=== PATIENT | male | born 1985 | race Two or more races ===

== ENCOUNTER 2021-04-21 12:36 | Outpatient (REF) | payer BC, SELFPAY ==
[2021-04-21 12:54] LABS: Binax Internal Control QC Valid; Binax Now Covid-19 Ag Negative (Negative)
== END 2021-04-21 12:37 | disposition home or self-care (01) ==
LOC: HO.LAB 12:36
PROVIDERS: Visit Provider Internal Medicine
DX: Z20.822 Contact with and (suspected) exposure to COVID-19 (principal)
CPT/HCPCS: C9803

== ENCOUNTER 2021-04-27 09:13 | Emergency (ER) | payer BC, SELFPAY ==
--- NOTE | ~2021-04-27 | CT_ITS ---
EXAMINATION: CT ABDOMEN AND PELVIS WITH CONTRAST CLINICAL INFORMATION: Upper abdominal pain. Question pancreatitis. COMPARISON: Abdominal ultrasound from earlier the same day TECHNIQUE: Multidetector volumetric images were obtained from the superior aspect of the liver through the pubic symphysis following administration 85 mL of Omnipaque 350 intravenous contrast. Sagittal and coronal reformatted images were obtained on the technologist's workstation. Oral contrast: Yes This CT examination was performed using dose optimization techniques as appropriate, variously including the following: *Automated exposure control *Adjustment of mA and/or kV according to patient size (this includes techniques or standardized protocols for targeted exams where dose is matched to indication/reason for exam; i.e. extremities or head) *Use of iterative reconstruction technique DLP: 315 mGy-cm FINDINGS: LUNG BASES: The visualized lung bases are unremarkable. LIVER, GALLBLADDER, AND BILIARY TREE: The liver is normal in size, shape, and attenuation. No focal hepatic lesion or biliary ductal dilatation is present. The gallbladder is upper normal in size. No gallstones are appreciated by CT scan. The gallbladder wall is normal. There is no pericholecystic fluid.. PANCREAS: There is mild dilatation of the main pancreatic duct in the head of the pancreas measuring up to 4 to 5 mm. The pancreas is otherwise normal appearing. There is little fat surrounding the pancreas and bowel evaluation of the peripancreatic fat is difficult. No fluid around the pancreas is seen. SPLEEN: Unremarkable. ADRENAL GLANDS: Unremarkable. KIDNEYS AND URETERS: There is a small 2 mm stone in the lower pole of the right kidney. The kidneys are otherwise unremarkable. BLADDER: Unremarkable. GASTROINTESTINAL TRACT: The small and large bowel are unremarkable. The appendix is not seen. There are no inflammatory changes in the right lower quadrant. The stomach is normal. ABDOMINAL WALL: No significant hernia is appreciated. LYMPH NODES: Normal. VASCULAR: Unremarkable. PELVIC VISCERA: Unremarkable. OSSEOUS STRUCTURES: Unremarkable. CT/CT abdomen pelvis w con IMPRESSION: Mild dilatation of the main pancreatic duct in the head of the pancreas. The pancreas is otherwise unremarkable. Upper normal-size gallbladder. Small nonobstructing right renal stone. Fleischner guidelines were followed.
--- NOTE | ~2021-04-27 | US_ITS ---
EXAMINATION: US ABDOMEN COMPLETE CLINICAL INFORMATION: Upper abdominal pain, nausea and vomiting and diarrhea for one week. COMPARISON: None TECHNIQUE: Real-time imaging of the abdominal viscera. FINDINGS: PANCREAS: The head of the pancreas appears slightly hypoechoic. A focal lesion is not appreciated. The main pancreatic duct does not appear dilated. ABDOMINAL AORTA: The proximal and mid segments are normal in caliber. The distal abdominal aorta is not well visualized due to bowel gas. INFERIOR VENA CAVA: Visualized portions are normal. LIVER: Normal. The liver is normal in size. The liver contour is normal. Parenchymal echogenicity is normal. No focal hepatic lesion. There is no intrahepatic biliary duct dilatation seen. GALLBLADDER: Slightly enlarged measuring 3 x 3.8 x 10.2 cm in AP transverse and longitudinal dimension. No gallstones are seen. The gallbladder wall is normal-appearing. There is no pericholecystic fluid. COMMON BILE DUCT: Normal in caliber measuring 0.4 cm in diameter. RIGHT KIDNEY: The upper pole of the right kidney is not well visualized. No hydronephrosis. No renal calculi or focal parenchymal lesions. The kidney measures 8.7 cm in maximum dimension. LEFT KIDNEY: Normal. No hydronephrosis. No renal calculi or focal parenchymal lesions. The kidney measures 9.9 cm in maximum dimension. SPLEEN: Normal. The spleen measures 7.6 cm in maximum dimension. FREE FLUID: None. US/US abdomen complete IMPRESSION: Hypoechoic appearance to the head of the pancreas. Correlation with pancreatic enzymes recommended. This could be better evaluated with CT if clinically indicated. Slightly enlarged gallbladder. No gallstone seen.
[2021-04-27 09:16] VITALS: BP 117/58; PULSE 70; RESP 18; TEMP 36.7; O2SAT 99; BMI 22.5
[2021-04-27] MEDS: 0.9 % Sodium Chloride 1,000 ML 999 ML IVCONT (09:55)
[2021-04-27 09:57] LABS: MANUAL DIFF FLAG NO
[2021-04-27 10:01] LABS: Basophils Percent Auto 0.3 % (0-2); Eosinophils Absolute Auto 0.1 X10*3/uL (0.0-0.4); Eosinophils Percent Auto 1.8 % (0-4); Hematocrit 39.7 % (42.0-52.0); Hemoglobin 12.6 g/dl (14.0-18.0); Imm Gran Abs Auto 0.02 X10*3/uL (0.00-0.03); Imm Gran Pct Auto 0.6 % (0.0-0.4); Lymphocytes Percent Auto 28.7 % (20-40); Mean Corpuscular HGB Conc 31.7 g/dl (31.0-36.0); Mean Corpuscular Hemoglobin 30.8 pg (27.0-33.0); Mean Corpuscular Volume 97.1 fL (80.0-98.0); Mean Platelet Volume 10.1 fL (9.4-12.4); Monocytes Absolute Auto 0.2 X10*3/uL (0.1-1.2); Monocytes Percent Auto 6.1 % (2-11); Neutrophils Absolute Auto 2.1 x10*3/uL (2.0-8.3); Neutrophils Percent Auto 62.5 % (45-73); Platelet Count 187 X10*3/uL (160-400); Red Blood Count 4.09 X10*6/uL (4.60-5.80); Red Cell Distribution Width 13.1 % (11.0-16.0); White Blood Count 3.4 X10*3/uL (4.8-10.8)
[2021-04-27 10:16] LABS: Alanine Aminotransferase 19 U/L (0-40); Albumin Level 4.3 g/dL (3.5-5.0); Alkaline Phosphatase 85 U/L (39-117); Anion Gap 9 (12-20); Aspartate Amino Transferase 20 U/L (5-37); Bilirubin Total 0.7 mg/dL (0.0-1.0); Blood Urea Nitrogen 18 mg/dL (9-16); Calcium 9.6 mg/dL (8.4-10.2); Carbon Dioxide 31 mmol/L (22-29); Chloride 107 mmol/L (96-108); Creatinine Clr Calc Pharmacy 123.1; Estimated Glomerular Filt Rate > 60; Glucose Random 105 mg/dL (60-115); Magnesium 2.3 mg/dL (1.6-2.6); Potassium 4.9 mmol/L (3.3-5.1); Sodium 142 mmol/L (135-145); Total Protein 7.3 g/dL (6.5-8.0)
[2021-04-27 10:20] LABS: COVID-19 Test Negative (Negative)
--- NOTE | 2021-04-27 11:10 | ED_ITS ---
HPI - Abdominal Pain General Chief Complaint: General Medical Stated Complaint: Body aches/Vomiting Time Seen by Provider: 04/27/21 09:33 Source: patient Mode of arrival: ambulatory Limitations: language barrier ([place]-speaking) History of Present Illness HPI narrative: 35-year-old male who denies any significant past medical history presenting to the ED with complaints of body aches, chills, subjective fevers, nausea and vomiting with upper abdominal pain and diarrhea for the past week worse today. Reports that he is unable to keep anything down. Reports that he was tested for COVID over 4-5 times over the past week and he continues to test negative. He reports that his significant other and child had similar symptoms approximately 1 week ago although their symptoms have resolved. He denies any measured fevers, dizziness, headaches, neck pain/stiffness, trouble swallowing or breathing, black or bloody emesis, sore throat, nasal congestion, loss of taste or smell, chest pain or shortness of breath, dyspnea on exertion, orthopnea, palpitations, paresthesias, black or bloody stools, constipation, dysuria, hematuria, abnormal penile discharge, rashes, bad food exposure, recent travel or any other symptoms complaints or concerns at this time. MD elicited complaint: abdominal pain Pertinent past history: none Onset (ago): week(s) (1) Pain Consistency: constant Location: epigastric, LUQ and RUQ Severity: moderate Quality: cramping Radiation: none Migration to: no migration Exacerbating factors: nothing Relieving factors: nothing Context: sick contacts Associated symptoms: nausea, vomiting, diarrhea, fever and chills Related Data Previous Rx's Medication Instructions Recorded dicyclomine 20 mg tablet 20 mg PO BID PRN #14 tab 04/27/21 ondansetron 4 mg disintegrating 4 mg PO Q6-8H PRN #14 tab 04/27/21 tablet Allergies Allergy/AdvReac Type Severity Reaction Status Date / Time No Known Allergies Allergy Unverified 12/11/19 19:08 [No Known Allergies*] Review of Systems Review of Systems Constitutional : + subjective Fever, + Chills, No Night Sweats, + Fatigue, + Malaise Cardiovascular : No Chest Pain, No SOB Respiratory : No Cough, No Sputum, No Wheezing, No Dyspnea Gastrointestinal : + Nausea, + Vomiting, + Diarrhea, + abdominal Pain, No Hematochezia, No Melena Genitourinary : No irregular bleeding, No Dysuria, No Urinary Frequency, No Hematuria,No Urinary Incontinence, No Urgency, No Flank Pain Musculoskeletal : No joint pain, No Myalgias, No Joint Swelling Skin : No Skin Lesions, No rash Neuro : No Weakness, No Numbness, No Paresthesias, No Loss of Consciousness, No Dizziness, No Headache Heme/Lymph: No Lymphadenopathy Endocrine : No Temperature Intolerance Yes all other systems are reviewed and are negative Physical Exam 2 Verdana 4l Vital Signs: Verdana 4d Verdana 4d Vital Signs: Verdana 4d Verdana 4Bd Last Vital Signs Verdana 4d Gang Supervisor New 4d Gang Supervisor New 4d Temp 98.1 F 04/27/21 09:16 Gang Supervisor New 4d Pulse 70 04/27/21 09:16 Gang Supervisor New 4d Resp 18 04/27/21 09:16 BP 117/58 L 04/27/21 09:16 Pulse Ox 99 04/27/21 09:16 BMI result Body Mass Index 22.5 vital signs have been reviewed as normal and appeared to be correct. Blood pressure normal. Heart rate normal. Respiration rate normal. Temperature normal. Oxygen saturation normal. Appearance: Alert. Oriented X3. No acute distress. Head: Normal external exam. Normocephalic. Eyes: PERRLA. EOMI. Conjunctiva and sclera normal. Eyelids normal. ENT: Pharynx normal. Uvula midline. Moist mucous membranes. No trismus noted. No drooling noted. No muffled voice noted. Neck: Normal inspection. Neck supple. FROM. No adenopathy. No meningeal signs. CVS: Normal heart rate and rhythm. Heart sound normal. No murmurs noted. Pulses normal throughout. Respiratory: No respiratory distress. Painless inspiration. Breath sounds normal. No wheezes/rales/rhonchi noted. Chest nontender. No accessory muscle usage noted or decreased air movement noted. Abdomen: Soft and mild tenderness palpation to epigastric/left upper quadrant/right upper quadrant. Nondistended. No guarding. No rigidity. Bowel sounds normal in all 4 quadrants. No distention noted. No organomegaly noted. No visible injury noted. No rebound tenderness. Negative Rovsing sign. Negative obturator's sign. Negative psoas sign. Negative Sheets sign. Back: No CVA tenderness. Full range of motion noted. Skin: Skin warm and dry. Normal skin color. Normal skin turgor. No rashes/lesions/lacerations noted. Extremities: Extremities exhibit normal range of motion. Extremities nontender. Neuro: Oriented X 3. No motor deficit. No sensory deficit. Reflexes normal. Normal steady gait. Vascular: + radial pulses/+ 2 distal pedal pulses/+2 dorsalis pedis b/l. Normal cap refill. No cyanosis noted to upper extremity nails and lower extremity toes nails. Course Course Course Narrative: 9:45am - 35-year-old male who denies any significant past medical history presenting to the ED with complaints of body aches, chills, subjective fevers, nausea and vomiting with upper abdominal pain and diarrhea for the past week worse today. Reports that he is unable to keep anything down. Reports that he was tested for COVID over 4-5 times over the past week and he continues to test negative. He reports that his significant other and child had similar symptoms approximately 1 week ago although their symptoms have resolved. Plan: Patient negative for COVID. Will obtain labs, abdominal ultrasound provide a L of IV fluids and re-evaluate. Reevaluation(s) Reevaluation #1: - patient with blood cell count 3000. Mild anemia with an H&H of 12.6/39.7. Anion gap of 9. BUN of 18. Lipase 5. COVID negative. Otherwise all other labs are within normal limits. - abdominal ultrasound revealed hypoechoic appearance of the head of the pancreas correlate with pancreatic enzymes recommended which could be better evaluated with CT scan if clinically indicated with a slightly enlarged gallbladder no gallstones seen therefore at this time a CT scan abdomen and pelvis with IV contrast was ordered. Will re-evaluate. Time: 12:02 Reevaluation #2: - CT scan of abdomen and pelvis revealed mild dilation of the main pancreatic duct in the head of the pancreas otherwise the pancreas is otherwise unremarkable. Upper normal size of gallbladder small nonobstructing right renal stone otherwise no other acute processes were noted. - therefore at this time will DC home with Zofran and symptomatic treatment and referral to GI for further evaluation treatment although the patient's labs including bilirubin and lipase are all within normal limits and lipase is actually 5 therefore no indication for admission at this time or further evaluation treatment at this time through the ED. He can be worked up as an outpatient in GI. Patient understands agrees with this plan. Time: 12:22 MDM - Abdominal Pain Medical Records Attestation: I reviewed the patient's medical records. Lab Data Attestation: I reviewed the patient's lab results. Result diagrams: 04/27/21 09:51 04/27/21 09:51 Labs: Lab Results 04/27/21 04/27/21 04/27/21 Range/Units 09:51 09:51 09:51 WBC 3.4 L (4.8-10.8) X10*3/uL RBC 4.09 L (4.60-5.80) X10*6/uL Hgb 12.6 L (14.0-18.0) g/dl Hct 39.7 L (42.0-52.0) % MCV 97.1 (80.0-98.0) fL MCH 30.8 (27.0-33.0) pg MCHC 31.7 (31.0-36.0) g/dl RDW 13.1 (11.0-16.0) % Plt Count 187 (160-400) X10*3/uL MPV 10.1 (9.4-12.4) fL Immature Gran % (Auto) 0.6 H (0.0-0.4) % Neut % (Auto) 62.5 (45-73) % Lymph % (Auto) 28.7 (20-40) % [place] % (Auto) 6.1 (2-11) % Eos % (Auto) 1.8 (0-4) % Baso % (Auto) 0.3 (0-2) % Lymph # (Auto) 1.0 L (1.2-4.9) X10*3/uL [place] # (Auto) 0.2 (0.1-1.2) X10*3/uL Eos # (Auto) 0.1 (0.0-0.4) X10*3/uL Baso # (Auto) 0.0 (0.0-0.2) X10*3/uL Abs Immat Gran (auto) 0.02 (0.00-0.03) X10*3/uL Absolute Neuts (auto) 2.1 (2.0-8.3) x10*3/uL Absolute Nucleated RBC 0.000 (0.0-0.012) X10*3/uL Nucleated RBC % (auto) 0.0 (0.0-0.2) /100WBC Sodium 142 (135-145) mmol/L Potassium 4.9 (3.3-5.1) mmol/L Chloride 107 (96-108) mmol/L Carbon Dioxide 31 H (22-29) mmol/L Anion Gap 9 L (12-20) BUN 18 H (9-16) mg/dL Creatinine 0.78 (0.5-1.4) mg/dL Estim Creat Clear Calc 123.1 Estimated GFR > 60 Random Glucose 105 (60-115) mg/dL Calcium 9.6 (8.4-10.2) mg/dL Magnesium 2.3 (1.6-2.6) mg/dL Total Bilirubin 0.7 (0.0-1.0) mg/dL AST 20 (5-37) U/L ALT 19 (0-40) U/L Alkaline Phosphatase 85 (39-117) U/L Total Protein 7.3 (6.5-8.0) g/dL Albumin 4.3 (3.5-5.0) g/dL Lipase 5 L (8-78) U/L COVID-19 (ESTRELLITA) Negative (Negative) COVID-19 Clin Com See Note Imaging Data Abdominal ultrasound: Attestation: I personally reviewed and interpreted this imaging study as follows: Radiologist's impression: FINDINGS: PANCREAS: The head of the pancreas appears slightly hypoechoic. A focal lesion is not appreciated. The main pancreatic duct does not appear dilated. ABDOMINAL AORTA: The proximal and mid segments are normal in caliber. The distal abdominal aorta is not well visualized due to bowel gas. INFERIOR VENA CAVA: Visualized portions are normal. LIVER: Normal. The liver is normal in size. The liver contour is normal. Parenchymal echogenicity is normal. No focal hepatic lesion. There is no intrahepatic biliary duct dilatation seen. GALLBLADDER: Slightly enlarged measuring 3 x 3.8 x 10.2 cm in AP transverse and longitudinal dimension. No gallstones are seen. The gallbladder wall is normal-appearing. There is no pericholecystic fluid. COMMON BILE DUCT: Normal in caliber measuring 0.4 cm in diameter. RIGHT KIDNEY: The upper pole of the right kidney is not well visualized. No hydronephrosis. No renal calculi or focal parenchymal lesions. The kidney measures 8.7 cm in maximum dimension. LEFT KIDNEY: Normal. No hydronephrosis. No renal calculi or focal parenchymal lesions. The kidney measures 9.9 cm in maximum dimension. SPLEEN: Normal. The spleen measures 7.6 cm in maximum dimension. FREE FLUID: None. US/US abdomen complete IMPRESSION: Hypoechoic appearance to the head of the pancreas. Correlation with pancreatic enzymes recommended. This could be better evaluated with CT if clinically indicated. Slightly enlarged gallbladder. No gallstone seen. CT scan abdomen pelvis with IV contrast: Attestation: I personally reviewed and interpreted this imaging study as follows: Radiologist's impression: FINDINGS: LUNG BASES: The visualized lung bases are unremarkable.? LIVER, GALLBLADDER, AND BILIARY TREE: The liver is normal in size, shape, and attenuation. No focal hepatic lesion or biliary ductal dilatation is present. The gallbladder is upper normal in size. No gallstones are appreciated by CT scan. The gallbladder wall is normal. There is no pericholecystic fluid..? PANCREAS: There is mild dilatation of the main pancreatic duct in the head of the pancreas measuring up to 4 to 5 mm. The pancreas is otherwise normal appearing. There is little fat surrounding the pancreas and bowel evaluation of the peripancreatic fat is difficult. No fluid around the pancreas is seen. SPLEEN: Unremarkable.? ADRENAL GLANDS: Unremarkable.? KIDNEYS AND URETERS: There is a small 2 mm stone in the lower pole of the right kidney. The kidneys are otherwise unremarkable. BLADDER: Unremarkable.? GASTROINTESTINAL TRACT: The small and large bowel are unremarkable. The appendix is not seen. There are no inflammatory changes in the right lower quadrant. The stomach is normal. ABDOMINAL WALL: No significant hernia is appreciated.? LYMPH NODES: Normal. VASCULAR: Unremarkable. PELVIC VISCERA: Unremarkable.? OSSEOUS STRUCTURES: Unremarkable.? CT/CT abdomen pelvis w con IMPRESSION: Mild dilatation of the main pancreatic duct in the head of the pancreas. The pancreas is otherwise unremarkable. Upper normal-size gallbladder. Small nonobstructing right renal stone. ? Fleischner guidelines were followed. Critical Care Time Critical Care Time Critical Care Time: Yes Total Critical Care Time: 60 Attestation: I personally attest to this time spent taking care of the patient Discharge Plan Discharge Clinical Impression: Nausea & vomiting, Abdominal pain, Dilated pancreatic duct Patient Disposition: Home, Self-Care Instructions: Acute Nausea and Vomiting (ED), Abdominal Pain (ED) Prescriptions: New ondansetron 4 mg tablet,disintegrating 4 mg PO Q6-8H PRN (Reason: nausea and vomiting) Qty: 14 0RF dicyclomine 20 mg tablet 20 mg PO BID PRN (Reason: Abdominal cramping) Qty: 14 0RF Referrals: Keven Moon MD [Physician] - 2 days Stand Alone Forms: Work/School Release Print Language: [place] [facility] Past Medical History Attestation statement: The following information was validated with the patient. Medical History No known health problems Social History Social History Advance Directives: No Advance Directives Information Provided: No
[2021-04-27 11:16] LABS: Lipase 5 U/L (8-78)
[2021-04-27] MEDS: iohexoL 350 MG/ML 100 ML INFUS..BTL 85 ML IV (11:33)
== END 2021-04-27 12:40 | disposition home or self-care (01) ==
PROVIDERS: Physician Assistant Medical; Emergency Provider Emergency Medicine Emergency Medical Services
DX: M79.10 Myalgia, unspecified site (principal); R10.11 Right upper quadrant pain; R10.12 Left upper quadrant pain; R11.2 Nausea with vomiting, unspecified; Z79.899 Other long term (current) drug therapy; Z20.822 Contact with and (suspected) exposure to COVID-19
CPT/HCPCS: 36415; 74177; 76700; 80053; 83690; 83735; 85025; 87635; 96360; 99283; 99291; Q9967

== ENCOUNTER 2021-07-05 16:43 | Emergency (ER) | payer OTHER, SELFPAY ==
[2021-07-05 17:47] VITALS: BP 101/52; PULSE 60; RESP 18; TEMP 36.9; O2SAT 98; BMI 20.2
[2021-07-05 18:13] LABS: MANUAL DIFF FLAG NO
[2021-07-05 18:15] LABS: Basophils Percent Auto 0.4 % (0-2); Eosinophils Percent Auto 0.9 % (0-4); Hematocrit 38.5 % (42.0-52.0); Hemoglobin 12.1 g/dl (14.0-18.0); Imm Gran Abs Auto 0.01 X10*3/uL (0.00-0.03); Imm Gran Pct Auto 0.2 % (0.0-0.4); Lymphocytes Absolute Auto 1.2 X10*3/uL (1.2-4.9); Lymphocytes Percent Auto 26.5 % (20-40); Mean Corpuscular HGB Conc 31.4 g/dl (31.0-36.0); Mean Corpuscular Hemoglobin 31.2 pg (27.0-33.0); Mean Corpuscular Volume 99.2 fL (80.0-98.0); Mean Platelet Volume 10.2 fL (9.4-12.4); Monocytes Absolute Auto 0.3 X10*3/uL (0.1-1.2); Monocytes Percent Auto 6.7 % (2-11); Neutrophils Absolute Auto 2.9 x10*3/uL (2.0-8.3); Neutrophils Percent Auto 65.3 % (45-73); Platelet Count 166 X10*3/uL (160-400); Red Blood Count 3.88 X10*6/uL (4.60-5.80); Red Cell Distribution Width 12.9 % (11.0-16.0); White Blood Count 4.5 X10*3/uL (4.8-10.8)
[2021-07-05 18:16] LABS: Appearance Urine HAZY; Color Urine YELLOW; Glucose Urine UA NEG (NEG); Leukocyte Esterase Urine NEG (NEG); Nitrite Urine NEG (NEG); Specific Gravity - Urine 1.015 (1.005-1.025); Urine Blood NEG (NEG); Urine Ketones NEG (NEG); Urine Protein TRACE MG/DL (NEG-TRACE)
[2021-07-05 18:37] LABS: Alanine Aminotransferase 16 U/L (0-40); Albumin Level 4.1 g/dL (3.5-5.0); Alkaline Phosphatase 87 U/L (39-117); Anion Gap 9 (12-20); Aspartate Amino Transferase 20 U/L (5-37); Bilirubin Total 0.5 mg/dL (0.0-1.0); Blood Urea Nitrogen 14 mg/dL (9-16); Calcium 9.3 mg/dL (8.4-10.2); Carbon Dioxide 32 mmol/L (22-29); Chloride 107 mmol/L (96-108); Creatinine Clr Calc Pharmacy 117.3; Estimated Glomerular Filt Rate > 60; Glucose Random 88 mg/dL (60-115); Potassium 3.9 mmol/L (3.3-5.1); Sodium 144 mmol/L (135-145); Total Protein 6.9 g/dL (6.5-8.0)
== END 2021-07-05 23:40 | disposition left against medical advice (07) ==
PROVIDERS: Emergency Provider Emergency Medicine; PCP Internal Medicine
DX: R11.10 Vomiting, unspecified (principal); R19.7 Diarrhea, unspecified; R10.9 Unspecified abdominal pain; F17.200 Nicotine dependence, unspecified, uncomplicated
CPT/HCPCS: 36415; 80053; 81003; 85025; 99283

== ENCOUNTER 2021-07-06 10:23 | Emergency (ER) | payer OTHER, SELFPAY ==
[2021-07-06 10:27] VITALS: BP 117/83; PULSE 74; RESP 18; TEMP 36; O2SAT 100; BMI 21.5
[2021-07-06 10:39] LABS: Basophils Percent Auto 0.2 % (0-2); Eosinophils Percent Auto 0.7 % (0-4); Hematocrit 40.5 % (42.0-52.0); Hemoglobin 13.1 g/dl (14.0-18.0); Imm Gran Abs Auto 0.01 X10*3/uL (0.00-0.03); Imm Gran Pct Auto 0.2 % (0.0-0.4); Lymphocytes Absolute Auto 0.8 X10*3/uL (1.2-4.9); Lymphocytes Percent Auto 18.3 % (20-40); MANUAL DIFF FLAG NO; Mean Corpuscular HGB Conc 32.3 g/dl (31.0-36.0); Mean Corpuscular Hemoglobin 31.5 pg (27.0-33.0); Mean Corpuscular Volume 97.4 fL (80.0-98.0); Mean Platelet Volume 9.9 fL (9.4-12.4); Monocytes Absolute Auto 0.2 X10*3/uL (0.1-1.2); Monocytes Percent Auto 4.4 % (2-11); Neutrophils Absolute Auto 3.5 x10*3/uL (2.0-8.3); Neutrophils Percent Auto 76.2 % (45-73); Platelet Count 187 X10*3/uL (160-400); Red Blood Count 4.16 X10*6/uL (4.60-5.80); White Blood Count 4.5 X10*3/uL (4.8-10.8)
[2021-07-06 10:54] LABS: Appearance Urine CLEAR; Color Urine YELLOW; Glucose Urine UA NEG (NEG); Leukocyte Esterase Urine NEG (NEG); Nitrite Urine NEG (NEG); PH 8.5 (5.0-8.0); Urine Blood NEG (NEG); Urine Ketones NEG (NEG); Urine Protein NEG (NEG-TRACE)
[2021-07-06 11:17] LABS: Alanine Aminotransferase 20 U/L (0-40); Albumin Level 4.4 g/dL (3.5-5.0); Alkaline Phosphatase 90 U/L (39-117); Anion Gap 11 (12-20); Aspartate Amino Transferase 24 U/L (5-37); Bilirubin Total 0.6 mg/dL (0.0-1.0); Blood Urea Nitrogen 13 mg/dL (9-16); Calcium 9.4 mg/dL (8.4-10.2); Carbon Dioxide 27 mmol/L (22-29); Chloride 108 mmol/L (96-108); Creatinine Clr Calc Pharmacy 118.4; Estimated Glomerular Filt Rate > 60; Glucose Random 109 mg/dL (60-115); Sodium 142 mmol/L (135-145); Total Protein 7.4 g/dL (6.5-8.0)
[2021-07-06 13:41] VITALS: BP 112/71; PULSE 57; RESP 12; TEMP 36.7; O2SAT 100
--- NOTE | 2021-07-06 13:47 | ED.NAVMDI ---
HPI - Nausea/Vomiting/Diarrhea General Chief complaint: Abdominal Pain Stated complaint: N/V/D Time Seen by Provider: 07/06/21 13:22 Source: patient and seismic interpreter Mode of arrival: ambulatory Limitations: no limitations History of Present Illness MD elicited complaint: nausea, vomiting, diarrhea and abdominal pain Onset (ago): day(s) (2) Description of vomiting: food contents Associated nausea: Yes Associated abdominal pain: Yes Location of pain: diffuse Radiation: diffuse Pain consistency: intermittent Severity: mild Quality: cramping Exacerbating factors: eating Relieving factors: none Associated symptoms: fever/chills, loss of appetite, malaise and nausea/vomiting Related Data Previous Rx's Medication Instructions Recorded dicyclomine 20 mg tablet 20 mg PO BID PRN #14 tab 04/27/21 ondansetron 4 mg disintegrating 4 mg PO Q6-8H PRN #14 tab 04/27/21 tablet famotidine 20 mg tablet (Pepcid) 20 mg PO DAILY PRN #30 tab 07/06/21 ondansetron 4 mg disintegrating 4 mg PO Q8H PRN #20 tab 07/06/21 tablet Allergies Allergy/AdvReac Type Severity Reaction Status Date / Time No Known Allergies Allergy Unverified 12/11/19 19:08 [No Known Allergies*] Review of Systems Review of Systems: Constitutional : No Weight loss, No Fever, No Chills ENT/Mouth : No sore throat, No Rhinorrhea Eyes: No Swelling, No Redness Cardiovascular : No Chest Pain, No SOB, NoEdema Respiratory : No Cough, No Sputum, No Wheezing Gastrointestinal : Positive Nausea, Positive Vomiting, positive Diarrhea, positive abdominal Pain, No Hematochezia, No Melena Genitourinary : No Dysuria, No Urinary Frequency, No Hematuria, No Urgency Musculoskeletal : No joint pain, No Myalgias, No Joint Swelling Skin : No Skin Lesions, No rash Neuro : No Weakness, No Numbness, No Dizziness, No Headache Psych : No Anxiety/Panic, No Depression Heme/Lymph: No Bruising, No Lymphadenopathy Endocrine : No Polyuria, No Polydipsia All other systems reviewed and are negative. Gastrointestinal: Gastrointestinal: Reports nausea PMFSH Past Medical History Attestation statement: The following information was validated with the patient. Medical History No known health problems Social History Social History (Updated 07/06/21 @ 13:47 by Flavia Newman DO) Patient Tobacco Use Status: Current everyday Tobacco user Advance Directives: No Physical Exam Vital Signs: Vital Signs: Last Vital Signs Temp 98.0 F 07/06/21 13:41 Pulse 57 07/06/21 13:41 Resp 12 07/06/21 13:41 BP 112/71 07/06/21 13:41 Pulse Ox 100 07/06/21 13:41 BMI result Body Mass Index 21.5 Appearance: Alert. Oriented X3. No acute distress. Eyes: Pupils equal, round and reactive to light. ENT: Pharynx normal. Neck: Normal inspection. Neck supple. CVS: Normal heart rate and rhythm. Pulses normal. Respiratory: No respiratory distress. Breath sounds normal. Abdomen: Soft and non-tender. Skin: Skin warm and dry. Normal skin color. Normal skin turgor. Extremities: No lower extremity edema. No calf ttp Neuro: Oriented X 3. No motor deficit. No sensory deficit. Course Course Course Narrative: tolerating PO feels better MDM - Nausea/Vomiting/Diarrhea MDM Narrative Medical decision making narrative: 35 yo male with hx of dilated pancreatic duct comes in with c/o abdominal pain, hot flashes, n/v/d x 2 days - denies abx use, sick contacts, or food exposures. Overall his abdomen is benign and he is not toxic. Will obtain basic labs, hydrate, IVF, supportive medications - states he has a follow up appointment for his CT scan findings 04/2021 Lab Data Result diagrams: 07/06/21 10:34 07/06/21 10:34 Labs: Lab Results 07/06/21 07/06/21 07/06/21 Range/Units 10:34 10:34 10:43 WBC 4.5 L (4.8-10.8) X10*3/uL RBC 4.16 L (4.60-5.80) X10*6/uL Hgb 13.1 L (14.0-18.0) g/dl Hct 40.5 L (42.0-52.0) % MCV 97.4 (80.0-98.0) fL MCH 31.5 (27.0-33.0) pg MCHC 32.3 (31.0-36.0) g/dl RDW 13.0 (11.0-16.0) % Plt Count 187 (160-400) X10*3/uL MPV 9.9 (9.4-12.4) fL Immature Gran % (Auto) 0.2 (0.0-0.4) % Neut % (Auto) 76.2 H (45-73) % Lymph % (Auto) 18.3 L (20-40) % [place] % (Auto) 4.4 (2-11) % Eos % (Auto) 0.7 (0-4) % Baso % (Auto) 0.2 (0-2) % Lymph # (Auto) 0.8 L (1.2-4.9) X10*3/uL [place] # (Auto) 0.2 (0.1-1.2) X10*3/uL Eos # (Auto) 0.0 (0.0-0.4) X10*3/uL Baso # (Auto) 0.0 (0.0-0.2) X10*3/uL Abs Immat Gran (auto) 0.01 (0.00-0.03) X10*3/uL Absolute Neuts (auto) 3.5 (2.0-8.3) x10*3/uL Absolute Nucleated RBC 0.000 (0.0-0.012) X10*3/uL Nucleated RBC % (auto) 0.0 (0.0-0.2) /100WBC Sodium 142 (135-145) mmol/L Potassium 4.0 (3.3-5.1) mmol/L Chloride 108 (96-108) mmol/L Carbon Dioxide 27 (22-29) mmol/L Anion Gap 11 L (12-20) BUN 13 (9-16) mg/dL Creatinine 0.80 (0.5-1.4) mg/dL Estim Creat Clear Calc 118.4 Estimated GFR > 60 Random Glucose 109 (60-115) mg/dL Calcium 9.4 (8.4-10.2) mg/dL Total Bilirubin 0.6 (0.0-1.0) mg/dL AST 24 (5-37) U/L ALT 20 (0-40) U/L Alkaline Phosphatase 90 (39-117) U/L Total Protein 7.4 (6.5-8.0) g/dL Albumin 4.4 (3.5-5.0) g/dL Lipase 7 L (8-78) U/L Urine Color YELLOW Urine Appearance CLEAR Urine pH 8.5 H (5.0-8.0) Ur Specific [place] 1.020 (1.005-1.025) Urine Protein NEG (NEG-TRACE) MG/DL Urine Glucose (UA) NEG (NEG) MG/DL Urine Ketones NEG (NEG) MG/DL Urine Blood NEG (NEG) Urine Nitrite NEG (NEG) Ur Leukocyte Esterase NEG (NEG) Discharge Plan Discharge Clinical Impression: Vomiting, Abdominal pain, Diarrhea Patient Disposition: Home, Self-Care Instructions: Acute Nausea and Vomiting (ED), Acute Diarrhea (ED), Abdominal Pain (ED) Additional Instructions: return to ED for any worsening symptoms or concerns Prescriptions: New famotidine [Pepcid] 20 mg tablet 20 mg PO DAILY PRN (Reason: abdominal discomfort) Qty: 30 0RF ondansetron 4 mg tablet,disintegrating 4 mg PO Q8H PRN (Reason: nausea and vomiting) Qty: 20 0RF No Action ondansetron 4 mg tablet,disintegrating 4 mg PO Q6-8H PRN (Reason: nausea and vomiting) Qty: 14 0RF dicyclomine 20 mg tablet 20 mg PO BID PRN (Reason: Abdominal cramping) Qty: 14 0RF Stand Alone Forms: Work/School Release Print Language: Portuguese
[2021-07-06] MEDS: 0.9 % Sodium Chloride 1,000 ML 999 ML IV (13:52)
[2021-07-06] MEDS: Famotidine/PF 20 MG/2 ML VIAL IVPUSH (13:53)
[2021-07-06] MEDS: Ketorolac Tromethamine 30 MG/ML VIAL IVPUSH (13:53)
[2021-07-06] MEDS: ondansetron HCL 4 MG/2 ML VIAL IVPUSH (13:53)
[2021-07-06 13:54] LABS: Lipase 7 U/L (8-78)
--- NOTE | 2021-07-06 14:43 | PC.NURSE ---
patient tolerating PO intake at this time, no apparent distress. denies any needs
== END 2021-07-06 15:05 | disposition home or self-care (01) ==
PROVIDERS: Emergency Provider Emergency Medicine; PCP Family Medicine
DX: R10.9 Unspecified abdominal pain (principal); R11.10 Vomiting, unspecified; R19.7 Diarrhea, unspecified; F17.210 Nicotine dependence, cigarettes, uncomplicated; Z71.6 Tobacco abuse counseling; Z79.899 Other long term (current) drug therapy
CPT/HCPCS: 36415; 80053; 81003; 83690; 85025; 96361; 96374; 96375; 99284; J1885; J2405

== ENCOUNTER 2021-11-04 07:44 | Outpatient (REF) | payer OTHER, SELFPAY ==
--- NOTE | ~2021-11-04 | XR_ITS ---
EXAMINATION: XR KNEE AP STANDING CLINICAL INFORMATION: Knee pain COMPARISON: Radiographs left knee 11/04/2021, 11/26/2015 TECHNIQUE: Standing AP view of both knees is performed. FINDINGS: Right: Normal bony mineralization. No joint narrowing or erosive change or chondrocalcinosis or subchondral sclerosis. Left: Visualized hardware distal femur intact. No definite joint narrowing. No erosive change or chondrocalcinosis. XR/XR knee standing BI IMPRESSION: Unremarkable knees.
--- NOTE | ~2021-11-04 | XR_ITS ---
EXAMINATION: XR HIP, LEFT CLINICAL INFORMATION: Hip pain COMPARISON: Radiographs standing AP knees and left knee 11/04/2021, left knee 11/26/2015. TECHNIQUE: AP view pelvis is performed along with AP and frog-lateral projections left hip. FINDINGS: Pelvis shows no fracture or dislocation or destructive process. There is probable bilateral SI joint narrowing. No visible erosive change. Pubis unremarkable. Bony mineralization normal. Right hip are unremarkable. Small incidental bone island right femoral neck. Left hip shows no acute fracture or dislocation. There is old healed fracture mid femoral shaft with intramedullary jay with proximal and distal interlocking screws. Hardware intact. No osteolysis or destructive process. XR/XR hip LT w PEL1V IMPRESSION: -Suspect mild bilateral SI joint narrowing. No visible erosive change. -Old healed fracture left femoral shaft. Hardware intact.
--- NOTE | ~2021-11-04 | XR_ITS ---
EXAMINATION: XR KNEE, LEFT CLINICAL INFORMATION: Pain left knee. COMPARISON: Left knee 11/26/2015. TECHNIQUE: Two views of the left knee. FINDINGS: There is an intramedullary femoral jay extending through the distal femur, stabilized with a solitary screw in the distal femur. No visible acute fracture or dislocation is seen. There is minimal superior spurring. The soft tissues are unremarkable. XR/XR knee LT 2V IMPRESSION: Stable intramedullary femoral jay with a solitary screw through the distal femur stabilizing the jay. No joint effusion is seen except for minimal superior patellar spurring.
== END 2021-11-04 07:45 | disposition home or self-care (01) ==
LOC: HO.HOSX 07:44
PROVIDERS: Visit Provider Physician Assistant
DX: M25.561 Pain in right knee (principal); M25.562 Pain in left knee; M25.552 Pain in left hip; Z96.9 Presence of functional implant, unspecified
CPT/HCPCS: 73502; 73560; 73565; 99202

== ENCOUNTER → 2022-04-03 13:26 | Outpatient (BNVA) | payer OTHER, SELFPAY | PROVIDERS: PCP Family Medicine; Visit Provider Orthopaedic Surgery | DX: T84.84XA Pain due to internal orthopedic prosthetic devices, implants and grafts, initial encounter (principal); M25.562 Pain in left knee; Z96.9 Presence of functional implant, unspecified | CPT/HCPCS: 20610; 99202; J1100 ==

== ENCOUNTER 2022-05-04 10:00 | Outpatient (RCR) | payer OTHER, SELFPAY ==
--- NOTE | 2022-04-21 14:20 | MHC.PT.EP ---
[facility] [place] Office [place] [facility] [place] Office [address] [place] Soares [address] [phone] F: [phone] F: [phone] F: [phone] F: [phone] Physical Therapy Plan of Care Date of Evaluation: Date of Surgery: 2005 Diagnosis: chronic L knee pain (Hx femur fx with femoral retrograde nailing in 2005) Assessment: Patient is a 36 y.o. male who is referred to PT by Dr. Frankie Tam MD, with Dx of chronic L knee pain (Hx femur fx with femoral retrograde nailing in 2005). Patient impairments include pain, weakness, limited ROM, and antalgic gait. Patient current functional limitations are standing, walking, sleeping (gets spasms in leg), using stairs (lives on 4th floor), and sit to stand. Patient will benefit from skilled PT to address aforementioned impairments and functional limitations to meet established goals. Frequency and Duration: The patient will be seen 2x/week for 4 weeks Short Term Goals: 2 weeks Patient demonstrates consistency and independence with HEP to self manage symptoms. Patient presents with increased L ankle DF 5 degrees to improve heel to toe gait pattern [facility] Goals: 4 weeks Patient presents with increased L knee flexion 110 degrees to be able to perform sit to stand on low surface. Patient presents with increased L knee extension 4/5 to be able to perform reciprocal stairs at home. Treatment Plan: Modalities to reduce pain, spasms and effusion. Manual therapy to restore motion and function. Therapeutic exercise to improve strength and flexibility. Neuromuscular re-education for posture and balance. Therapeutic activities to return to functional activities of daily living. Electronically signed by: Samantha Arnold, PT, DPT Please sign and return to therapist. Thank you for your referral.
--- NOTE | 2022-05-19 11:03 | MHC.PT.DC ---
[facility] [place] Office [place] [facility] [place] [facility] [address] Milton Soares [address] [phone] F: [phone] F: [phone] F: [phone] F: [phone] Physical Therapy Discharge Report Diagnosis: chronic L knee pain (Hx femur fx with femoral retrograde nailing in 2005) Date of Surgery: 2005 Date of Evaluation: 04/21/22 Date of Discharge: 05/19/22 Treatments to Date: 3 Cancellations to Date: 1 No Shows to Date: 5 Discharge Status: Visit Non-compliance Discharge Summary: Patient ceased attending PT on his own accord and no showed or canceled more PT visits than he attended. Difficulty determining effectiveness of PT on patient condition due to this. His is discharged from PT at this time. Electronically signed by: Samantha Arnold, PT, DPT Please sign and return to therapist. Thank you for your referral.
== END 2022-05-19 11:04 | disposition home or self-care (01) ==
LOC: HO.PT 10:00
PROVIDERS: PCP Registered Nurse; Visit Provider Orthopaedic Surgery
DX: M25.562 Pain in left knee (principal); Z96.9 Presence of functional implant, unspecified
CPT/HCPCS: 97110; 97140; 97161

== ENCOUNTER → 2022-08-17 12:13 | Outpatient (BNVA) | payer OTHER, SELFPAY | PROVIDERS: PCP Registered Nurse; Visit Provider Orthopaedic Surgery | DX: M25.562 Pain in left knee (principal); Z96.9 Presence of functional implant, unspecified | CPT/HCPCS: 20610; 99212; J1100 ==

== ENCOUNTER 2023-06-27 16:21 | Outpatient (REF) | payer MEDICAID, SELFPAY ==
[2023-06-27 17:56] LABS: Alanine Aminotransferase 14 U/L (0-40); Albumin Level 4.1 g/dL (3.5-5.0); Alkaline Phosphatase 95 U/L (39-117); Aspartate Amino Transferase 16 U/L (5-37); Bilirubin Direct 0.2 mg/dL (0.0-0.5); Bilirubin Total 0.3 mg/dL (0.0-1.0); Total Protein 7.4 g/dL (6.5-8.0)
[2023-06-28 02:38] LABS: CT PCR NOT DETECTED (Not Detect.); NG PCR NOT DETECTED (Not Detect.)
[2023-06-28 07:13] LABS: HBS Num1 > 1000.00 mIU/mL (0-7.99); HBc Num1 0.09 S/CO (0.00-0.79); HBsAGNum1 0.39 S/CO (0.00-0.99); HIV AB/AG Nonreactive (Nonreactive); HIV Num 1 0.07 S/CO (0.00-0.99); Hepatitis B Core Antibody Nonreactive (Nonreactive); Hepatitis B Surface Antigen Negative (Negative); ~HepC Num1 14.27 S/CO (0.00-0.79); ~Hepatitis B Surface Antibody REACTIVE (Nonreactive); ~Hepatitis C Antibody Reactive (Nonreactive)
[2023-06-28 07:16] LABS: Hepatitis A Antibody IgG REACTIVE (Nonreactive); ~Hepatitis A Antibody IgG 10.32 S/CO (0.00-0.99)
[2023-06-28 07:18] LABS: Syphilis Screen Nonreactive (Nonreactive)
[2023-06-29 08:08] LABS: RPR Rapid Plasma Reagin NON-REACTIVE (NON-REACTIVE)
[2023-06-30 06:14] LABS: HIV RNA PCR Qn Copies Not Detected Copies/mL; HIV RNA PCR Qn Log Copies Not Detected Log cps/mL
[2023-07-03 16:03] LABS: HCV Log PCR <1.18 NOT DETECTED Log IU/mL (NOT DETECTED); HepC Viral Load <15 NOT DETECTED IU/mL (NOT DETECTED)
== END 2023-06-27 16:22 | disposition home or self-care (01) ==
LOC: HO.HHCL 16:21
PROVIDERS: Nurse Practitioner Family; Visit Provider Emergency Medicine
DX: Z11.4 Encounter for screening for human immunodeficiency virus [HIV] (principal); F11.20 Opioid dependence, uncomplicated; Z20.2 Contact with and (suspected) exposure to infections with a predominantly sexual mode of transmission
CPT/HCPCS: 0353U; 36415; 80076; 86592; 86704; 86706; 86708; 86780; 86803; 87340; 87389; 87522; 87536; 87900

== ENCOUNTER 2023-11-12 09:50 | Outpatient (REF) | payer MEDICAID, SELFPAY ==
[2023-11-14 23:33] LABS: TS Negative Control Passed; TS Panel A 0; TS Panel B 0; TS Positive Control Passed; TSpotTB Negative (Negative)
== END 2023-11-12 09:51 | disposition home or self-care (01) ==
LOC: HO.HHCL 09:50
PROVIDERS: Visit Provider Emergency Medicine
DX: F11.20 Opioid dependence, uncomplicated (principal)
CPT/HCPCS: 36415; 86481

== ENCOUNTER 2023-12-06 13:09 | Outpatient (REF) | payer MEDICAID, SELFPAY ==
[2023-12-06 16:52] LABS: TSH reflex Free T4 0.68 uIU/mL (0.32-4.0); Vitamin D 25-OH Total 19.7 ng/mL (>30)
[2023-12-06 17:07] LABS: Folate 13.6 ng/mL (> or = 4.0); Vitamin B12 243 pg/mL (200-900)
== END 2023-12-06 13:10 | disposition home or self-care (01) ==
LOC: HO.HHCL 13:09
PROVIDERS: Visit Provider Registered Nurse
DX: L65.9 Nonscarring hair loss, unspecified (principal)
CPT/HCPCS: 36415; 82306; 82607; 82746; 84443

== ENCOUNTER 2024-01-28 09:17 | Outpatient (REF) | payer MEDICAID, SELFPAY ==
[2024-01-28 11:26] LABS: Hematocrit 41.2 % (42.0-52.0); Hemoglobin 13.4 g/dl (14.0-18.0); Mean Corpuscular HGB Conc 32.5 g/dl (31.0-36.0); Mean Corpuscular Volume 98.3 fL (80.0-98.0); Mean Platelet Volume 10.7 fL (9.4-12.4); Platelet Count 178 X10*3/uL (160-400); Red Blood Count 4.19 X10*6/uL (4.60-5.80); Red Cell Distribution Width 14.2 % (11.0-16.0); White Blood Count 4.8 X10*3/uL (4.8-10.8)
[2024-01-28 13:00] LABS: Alanine Aminotransferase 22 U/L (0-40); Albumin Level 4.4 g/dL (3.5-5.0); Alkaline Phosphatase 91 U/L (39-117); Anion Gap 12 (12-20); Aspartate Amino Transferase 28 U/L (5-37); Bilirubin Total 0.4 mg/dL (0.0-1.0); Blood Urea Nitrogen 24 mg/dL (9-16); Calcium 9.2 mg/dL (8.4-10.2); Carbon Dioxide 26 mmol/L (22-29); Chloride 109 mmol/L (96-108); Cholesterol 118 mg/dL (<200); Estimated Glomerular Filt Rate > 60; Glucose Random 95 mg/dL (60-115); HDL Cholesterol 38 mg/dL (>40); LDL Cholesterol Calculated 63 mg/dL (<100); Potassium 3.9 mmol/L (3.3-5.1); Sodium 143 mmol/L (135-145); Total Protein 7.4 g/dL (6.5-8.0); Triglycerides 88 mg/dL (<150)
[2024-01-28 13:24] LABS: Estimated Average Glucose 94 mg/dL; Hemoglobin A1C 138.4477 umol/L; Hemoglobin A1c % 4.9 % (<6.0); Total Hemoglobin (HGBA1C) 4683.4243 umol/L
[2024-01-28 16:30] LABS: Iron 48 mcg/dL (45-160); Percent Iron Saturation 19 % (15-50); Total Iron Binding Capacity 250 mcg/dL (228-428); Unsaturated Iron Binding 202 ug/dL
[2024-01-28 16:36] LABS: Ferritin 42 ng/mL (20-250)
[2024-01-29 15:58] LABS: HCV Log PCR <1.18 NOT DETECTED Log IU/mL (NOT DETECTED); HepC Viral Load <15 NOT DETECTED IU/mL (NOT DETECTED)
== END 2024-01-28 09:18 | disposition home or self-care (01) ==
LOC: HO.HHCL 09:17
PROVIDERS: Visit Provider Student in an Organized Health Care Education/Training Program
DX: Z00.00 Encounter for general adult medical examination without abnormal findings (principal); M79.89 Other specified soft tissue disorders
CPT/HCPCS: 36415; 80053; 80061; 82728; 83036; 83540; 85027; 87522; 93970

== ENCOUNTER 2024-01-28 13:19 | Outpatient (REF) | payer MEDICAID, SELFPAY ==
--- NOTE | ~2024-01-28 | US_ITS ---
EXAMINATION: US TRIPLEX LOWER EXTREMITY, BILATERAL CLINICAL INFORMATION: Bilateral lower extremity edema COMPARISON: None available. TECHNIQUE: Color-flow triplex imaging with spectral analysis and compression Doppler were performed on the bilateral lower extremities. FINDINGS: Respiratory variation, normal compression and augmented flow are noted throughout the bilateral lower extremities. The visualized common femoral vein, superficial femoral vein, profunda femoral vein, popliteal vein and midcalf peroneal and posterior tibial venous segments show no evidence of deep venous thrombosis bilaterally. There is no Rose's cyst. US/US venous duplex LE BI IMPRESSION: No evidence of deep venous thrombosis involving the bilateral lower extremities. Electronically signed by: Jimmy Fields MD 01/28/2024 02:40 PM EST
== END 2024-01-28 13:20 | disposition home or self-care (01) ==
LOC: HO.US 13:19
PROVIDERS: Visit Provider Student in an Organized Health Care Education/Training Program
DX: I73.9 Peripheral vascular disease, unspecified (principal); R60.0 Localized edema
CPT/HCPCS: 93970

== ENCOUNTER 2024-01-31 15:24 | Outpatient (REF) | payer MEDICAID, SELFPAY ==
--- NOTE | ~2024-01-31 | US_ITS ---
EXAMINATION: NONINVASIVE ASSESSMENT OF THE ARTERIES OF BOTH LOWER EXTREMITIES INCLUDING PVR EXAM AND BILATERAL LOWER EXTREMITY DUPLEX CLINICAL INFORMATION: lower extremity swelling COMPARISON: None TECHNIQUE: Ankle pulse volume recordings, ankle pressure measurements and ankle brachial indices were obtained of the lower extremity arterial system bilaterally in addition to duplex Doppler techniques with wave form analysis and measurement of velocities in the common femoral, profunda femoral, superficial femoral, popliteal, tibial and peroneal arteries. The study was performed only at rest. FINDINGS: RIGHT LEG 1. Right Ankle-Brachial Index: 1.04 (higher of the DP/PT) >0.97-1.25 = normal - no significant arterial disease 0.75-0.96 = mild peripheral arterial disease 0.5-0.74 = moderate peripheral arterial disease <0.50 = severe peripheral arterial disease <0.30 = critical arterial disease 2. Segmental Pressures (mmHg): Brachial: 111 Ankle: PT 115, DP 105 3. PVR Waveforms: Ankle: normal 4. Direct Duplex: Common femoral artery: 162 cm/s, Triphasic Profunda femoris artery: 113 cm/s, Biphasic Superficial femoral artery (proximal): 116 cm/s, Triphasic Superficial femoral artery (mid): 132 cm/s, Biphasic Superficial femoral artery (distal): 129 cm/s, Triphasic Proximal Popliteal artery: 119 cm/s, Triphasic Mid posterior tibial artery: 105 cm/s, Biphasic LEFT LE. Left Ankle-Brachial Index: 1.08 (higher of the DP/PT) >0.97-1.25 = normal - no significant arterial disease 0.75-0.96 = mild peripheral arterial disease 0.5-0.74 = moderate peripheral arterial disease <0.50 = severe peripheral arterial disease <0.30 = critical arterial disease 2. Segmental Pressures: Brachial: 100 Ankle: PT 120, DP 111 3. PVR Waveforms: Ankle: normal 4. Direct Duplex: Common femoral artery: 149 cm/s, Triphasic Profunda femoris artery: 101 cm/s, Biphasic Superficial femoral artery (proximal): 102 cm/s, Triphasic Superficial femoral artery (mid): 127 cm/s, Triphasic Superficial femoral artery (distal): 123 cm/s, Triphasic Proximal Popliteal artery: 97 cm/s, Triphasic Mid posterior tibial artery: 89 cm/s, Triphasic US/US TAM complete IMPRESSION: 1. Normal bilateral ABIs and PVR waveforms. 2. No hemodynamically significant stenosis in the bilateral lower extremities. Electronically signed by: Maik Bowden MD 02/01/2024 08:45 AM [facility] [place]
--- NOTE | ~2024-01-31 | US_ITS ---
EXAMINATION: NONINVASIVE ASSESSMENT OF THE ARTERIES OF BOTH LOWER EXTREMITIES INCLUDING PVR EXAM AND BILATERAL LOWER EXTREMITY DUPLEX CLINICAL INFORMATION: lower extremity swelling COMPARISON: None TECHNIQUE: Ankle pulse volume recordings, ankle pressure measurements and ankle brachial indices were obtained of the lower extremity arterial system bilaterally in addition to duplex Doppler techniques with wave form analysis and measurement of velocities in the common femoral, profunda femoral, superficial femoral, popliteal, tibial and peroneal arteries. The study was performed only at rest. FINDINGS: RIGHT LEG 1. Right Ankle-Brachial Index: 1.04 (higher of the DP/PT) >0.97-1.25 = normal - no significant arterial disease 0.75-0.96 = mild peripheral arterial disease 0.5-0.74 = moderate peripheral arterial disease <0.50 = severe peripheral arterial disease <0.30 = critical arterial disease 2. Segmental Pressures (mmHg): Brachial: 111 Ankle: PT 115, DP 105 3. PVR Waveforms: Ankle: normal 4. Direct Duplex: Common femoral artery: 162 cm/s, Triphasic Profunda femoris artery: 113 cm/s, Biphasic Superficial femoral artery (proximal): 116 cm/s, Triphasic Superficial femoral artery (mid): 132 cm/s, Biphasic Superficial femoral artery (distal): 129 cm/s, Triphasic Proximal Popliteal artery: 119 cm/s, Triphasic Mid posterior tibial artery: 105 cm/s, Biphasic LEFT LE. Left Ankle-Brachial Index: 1.08 (higher of the DP/PT) >0.97-1.25 = normal - no significant arterial disease 0.75-0.96 = mild peripheral arterial disease 0.5-0.74 = moderate peripheral arterial disease <0.50 = severe peripheral arterial disease <0.30 = critical arterial disease 2. Segmental Pressures: Brachial: 100 Ankle: PT 120, DP 111 3. PVR Waveforms: Ankle: normal 4. Direct Duplex: Common femoral artery: 149 cm/s, Triphasic Profunda femoris artery: 101 cm/s, Biphasic Superficial femoral artery (proximal): 102 cm/s, Triphasic Superficial femoral artery (mid): 127 cm/s, Triphasic Superficial femoral artery (distal): 123 cm/s, Triphasic Proximal Popliteal artery: 97 cm/s, Triphasic Mid posterior tibial artery: 89 cm/s, Triphasic US/US arterial duplex LE BI IMPRESSION: 1. Normal bilateral ABIs and PVR waveforms. 2. No hemodynamically significant stenosis in the bilateral lower extremities. Electronically signed by: Maik Bowden MD 02/01/2024 08:45 AM [facility] [place]
== END 2024-01-31 15:25 | disposition home or self-care (01) ==
LOC: HO.US 15:24
PROVIDERS: PCP Registered Nurse; Visit Provider Student in an Organized Health Care Education/Training Program
DX: M79.89 Other specified soft tissue disorders (principal); I73.9 Peripheral vascular disease, unspecified
CPT/HCPCS: 93923; 93925

== ENCOUNTER 2024-02-26 13:34 | Outpatient (AMB) | payer MEDICAID, SELFPAY ==
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
[2024-02-26 13:38] VITALS: BMI 22.1
== END 2024-02-26 14:05 | disposition home or self-care (01) ==
PROVIDERS: PCP Registered Nurse; Visit Provider Surgery Vascular Surgery
DX: I73.9 Peripheral vascular disease, unspecified (principal)
CPT/HCPCS: 99204

== ENCOUNTER → 2024-02-26 13:34 | Outpatient (BNVA) | payer MEDICAID, SELFPAY | PROVIDERS: PCP Registered Nurse; Visit Provider Surgery Vascular Surgery | DX: I73.9 Peripheral vascular disease, unspecified (principal) | CPT/HCPCS: 99202 ==

== ENCOUNTER 2024-04-24 13:41 | Outpatient (REF) | payer MEDICAID, SELFPAY ==
--- OUTSIDE RECORDS SUMMARY | 2024-04-24 17:33 | XMS_ITS | Clinical Summary ---
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 EST Narrative [facility] - 02/01/2024 8:48 AM EST ? [facility] ?[address] ?[place] [address] ? Ultrasound Report ? Signed ? Patient: Frank,Herb ?MR#: [id number] ?? [id number] ? : 1985 ?Acct:[id number] ? Age/Sex: 38 / M ?ADM Date: 11/07/24 ? Loc: HO.US ? Attending Dr: Olamide Pereyra MD ? Ordering Physician: Olamide Barkley MD ?? Date of Service: 01/31/24 ?? Procedure(s): US arterial duplex LE BI ?? Accession Number(s): [id number] ? cc: Margot Tellez; Olamide Barkley MD ? EXAMINATION: ?? NONINVASIVE ASSESSMENT OF THE ARTERIES OF BOTH LOWER EXTREMITIES ?? INCLUDING PVR EXAM AND BILATERAL LOWER EXTREMITY DUPLEX ? CLINICAL INFORMATION: ?? lower extremity swelling ? COMPARISON: ?? None ? TECHNIQUE: ?? Ankle pulse volume recordings, ankle pressure measurements and ankle ?? brachial indices were obtained of the lower extremity arterial system ?? bilaterally in addition to duplex Doppler techniques with wave form ?? analysis and measurement of velocities in the common femoral, profunda ?? femoral, superficial femoral, popliteal, tibial and peroneal arteries. ?? The study was performed only at rest. ? FINDINGS: ? RIGHT LEG ?? 1. Right Ankle-Brachial Index: 1.04 (higher of the DP/PT) ?? >0.97-1.25 = normal - no significant arterial disease ?? 0.75-0.96 = mild peripheral arterial disease ?? 0.5-0.74 = moderate peripheral arterial disease ?? <0.50 = severe peripheral arterial disease ?? <0.30 = critical arterial disease ?? 2. Segmental Pressures (mmHg): ?? Brachial: 111 ?? Ankle: PT 115, DP 105 ?? 3. PVR Waveforms: ?? Ankle: normal ?? 4. Direct Duplex: ?? Common femoral artery: 162 cm/s, Triphasic ?? Profunda femoris artery: 113 cm/s, Biphasic ?? Superficial femoral artery (proximal): 116 cm/s, Triphasic ?? Superficial femoral artery (mid): 132 cm/s, Biphasic ?? Superficial femoral artery (distal): 129 cm/s, Triphasic ?? Proximal Popliteal artery: 119 cm/s, Triphasic ?? Mid posterior tibial artery: 105 cm/s, Biphasic ? LEFT LEG: ?? 1. Left Ankle-Brachial Index: 1.08 (higher of the DP/PT) ?? >0.97-1.25 = normal - no significant arterial disease ?? 0.75-0.96 = mild peripheral arterial disease ?? 0.5-0.74 = moderate peripheral arterial disease ?? <0.50 = severe peripheral arterial disease ?? <0.30 = critical arterial disease ?? 2. Segmental Pressures: ?? Brachial: 100 ?? Ankle: PT 120, DP 111 ?? 3. PVR Waveforms: ?? Ankle: normal ?? 4. Direct Duplex: ?? Common femoral artery: 149 cm/s, Triphasic ?? Profunda femoris artery: 101 cm/s, Biphasic ?? Superficial femoral artery (proximal): 102 cm/s, Triphasic ?? Superficial femoral artery (mid): 127 cm/s, Triphasic ?? Superficial femoral artery (distal): 123 cm/s, Triphasic ?? Proximal Popliteal artery: 97 cm/s, Triphasic ?? Mid posterior tibial artery: 89 cm/s, Triphasic ? / arterial duplex LE BI ?? IMPRESSION: ?? 1. ??Normal bilateral ABIs and PVR waveforms. ?? 2. ??No hemodynamically significant stenosis in the bilateral lower ?? extremities. ? Electronically signed by: ??Maik Bowden MD ??02/01/2024 08:45 AM EST RP ? Dictated By: ?Maik Bowden MD ? Signed By: ?<Electronically signed by Maik Bowden MD in OV> ?02/01/24 0845 ? DD/ 1547 ? TD/TT: 01/31/24 1610 ? Loan Approver: ? Procedure Note [place], Image - 02/01/2024 [place] [address] Ultrasound Report Signed Patient: Domenico FrankonyMR#: [id number] : 1985Acct:[id number] Age/Sex: 38 / MADM Date: 01/31/24 Loc: HO.US Attending Dr: Olamide Pereyra MD Ordering Physician: Olamide Barkley MD Date of Service: 01/31/24 Procedure(s): US arterial duplex LE BI Accession Number(s): [id number] cc: Margot TellezP; Olamide Barkley MD EXAMINATION: NONINVASIVE ASSESSMENT OF THE ARTERIES OF BOTH LOWER EXTREMITIES INCLUDING PVR EXAM AND BILATERAL LOWER EXTREMITY DUPLEX CLINICAL INFORMATION: lower extremity swelling COMPARISON: None TECHNIQUE: Ankle pulse volume recordings, ankle pressure measurements and ankle brachial indices were obtained of the lower extremity arterial system bilaterally in addition to duplex Doppler techniques with wave form analysis and measurement of velocities in the common femoral, profunda femoral, superficial femoral, popliteal, tibial and peroneal arteries. The study was performed only at rest. FINDINGS: RIGHT LEG 1. Right Ankle-Brachial Index: 1.04 (higher of the DP/PT) >0.97-1.25 = normal - no significant arterial disease 0.75-0.96 = mild peripheral arterial disease 0.5-0.74 = moderate peripheral arterial disease <0.50 = severe peripheral arterial disease <0.30 = critical arterial disease 2. Segmental Pressures (mmHg): Brachial: 111 Ankle: PT 115, DP 105 3. PVR Waveforms: Ankle: normal 4. Direct Duplex: Common femoral artery: 162 cm/s, Triphasic Profunda femoris artery: 113 cm/s, Biphasic Superficial femoral artery (proximal): 116 cm/s, Triphasic Superficial femoral artery (mid): 132 cm/s, Biphasic Superficial femoral artery (distal): 129 cm/s, Triphasic Proximal Popliteal artery: 119 cm/s, Triphasic Mid posterior tibial artery: 105 cm/s, Biphasic LEFT LE. Left Ankle-Brachial Index: 1.08 (higher of the DP/PT) >0.97-1.25 = normal - no significant arterial disease 0.75-0.96 = mild peripheral arterial disease 0.5-0.74 = moderate peripheral arterial disease <0.50 = severe peripheral arterial disease <0.30 = critical arterial disease 2. Segmental Pressures: Brachial: 100 Ankle: PT 120, DP 111 3. PVR Waveforms: Ankle: normal 4. Direct Duplex: Common femoral artery: 149 cm/s, Triphasic Profunda femoris artery: 101 cm/s, Biphasic Superficial femoral artery (proximal): 102 cm/s, Triphasic Superficial femoral artery (mid): 127 cm/s, Triphasic Superficial femoral artery (distal): 123 cm/s, Triphasic Proximal Popliteal artery: 97 cm/s, Triphasic Mid posterior tibial artery: 89 cm/s, Triphasic US/US arterial duplex LE BI IMPRESSION: 1. Normal bilateral ABIs and PVR waveforms. 2. No hemodynamically significant stenosis in the bilateral lower extremities. Electronically signed by: Maik Bowden MD 02/01/2024 08:45 AM EST RP Dictated By: Maik Bowden MD Signed By: <Electronically signed by Maik Bowden MD in OV> 02/01/24 0845 DD/ 1547 TD/TT: 01/31/24 1610 Loan Approver: us Olamide Pereyra MD CV VASCULAR PROCE DURES Final Result [facility] [address] [place] [address] * Vascular US Lower Extremity Venous Duplex Bilateral (01/28/2024 1:47 PM EST) 01/28/2024 1:47 PM EST Narrative [facility] - 01/28/2024 2:43 PM EST ? [facility] ?[address] ?[place] [address] ? Ultrasound Report ? Signed ? Patient: Herb Frank ?MR#: [id number] ?? [id number] ? : 1985 ?Acct:[id number] ? Age/Sex: 38 / M ?ADM Date: 01/28/24 ? Loc: HO.US ? Attending Dr: Olamide Pereyra MD ? Ordering Physician: Olamide Barkley MD ?? Date of Service: 01/28/24 ?? Procedure(s): US venous duplex LE BI ?? Accession Number(s): [id number] ? cc: Olamide Barkley MD ? EXAMINATION: ?? US TRIPLEX LOWER EXTREMITY, BILATERAL ? CLINICAL INFORMATION: ?? Bilateral lower extremity edema ? COMPARISON: ?? None available. ? TECHNIQUE: ?? Color-flow triplex imaging with spectral analysis and compression ?? Doppler were performed on the bilateral lower extremities. ? FINDINGS: ?? Respiratory variation, normal compression and augmented flow are noted ?? throughout the bilateral lower extremities. The visualized common ?? femoral vein, superficial femoral vein, profunda femoral vein, ?? popliteal vein and midcalf peroneal and posterior tibial venous ?? segments show no evidence of deep venous thrombosis bilaterally. ? There is no Rose's cyst. ? US/US venous duplex LE BI ?? IMPRESSION: ?? No evidence of deep venous thrombosis involving the bilateral lower ?? extremities. ? Electronically signed by: ??Jimmy Fields MD ??01/28/2024 02:40 PM EST RP ? Dictated By: ?Jimmy Fields MD ? Signed By: ?<Electronically signed by Jimmy Fields MD in OV> ? 01/28/24 1440 ? DD/ 1347 ? TD/TT: 01/28/24 1414 ? Loan Approver: ? Procedure Note [place], Image - 01/28/2024 [place] [address] Ultrasound Report Signed Patient: Domenico FrankonyMR#: [id number] : 1985Acct:[id number] Age/Sex: 38 / MADM Date: 01/28/24 Loc: HO.US Attending Dr: Olamide Pereyra MD Ordering Physician: Olamide Barkley MD Date of Service: 01/28/24 Procedure(s): US venous duplex LE BI Accession Number(s): [id number] cc: Olamide Barkley MD EXAMINATION: US TRIPLEX LOWER EXTREMITY, BILATERAL CLINICAL INFORMATION: Bilateral lower extremity edema COMPARISON: None available. TECHNIQUE: Color-flow triplex imaging with spectral analysis and compression Doppler were performed on the bilateral lower extremities. FINDINGS: Respiratory variation, normal compression and augmented flow are noted throughout the bilateral lower extremities. The visualized common femoral vein, superficial femoral vein, profunda femoral vein, popliteal vein and midcalf peroneal and posterior tibial venous segments show no evidence of deep venous thrombosis bilaterally. There is no Rose's cyst. US/US venous duplex LE BI IMPRESSION: No evidence of deep venous thrombosis involving the bilateral lower extremities. Electronically signed by: Jimmy Fields MD 01/28/2024 02:40 PM EST Dictated By: Jimmy Fields MD Signed By: <Electronically signed by Jimmy Fields MD in OV> 01/28/24 1440 DD/ 1347 TD/TT: 01/28/24 1414 Loan Approver: Olamide Pereyra MD CV VASCULAR PROCE DAGOBERTO Edited Result - Final Performing Organization Address [facility] Co de Phone Number [facility] [address] [place] [phone] * Hepatitis C Viral RNA, Quantitative, Real-Time PCR (01/28/2024 9:25 AM EST) [facility] Hepatitis C Viral Load <15 NOT DETECTED NOT DETECTED IU/mL [facility] HCV Log PCR <1.18 NOT DETECTED NOT DETECTED Log IU/mL [facility] Comment:For additional infor mation, please refer tohttp://education.SurgiLight/faq/QOE31p5(This link is being provided for informational/educational purposes only.)THIS TEST WAS PERFORMED AT:[employer] [place] [id number] LOPEZ MD Blood 01/28/2024 9:25 AM EST 01/28/2024 11:10 AM EST us Olamide Pereyra MD LAB BLOOD ORDERAB LES Final Result Performing Organization Address [facility] Co de Phone Number [facility] [address] [place] [phone] * Iron And Total Iron Binding Capacity (01/28/2024 9:25 AM EST) Pathologist [facility] Iron 48 45 - 160 mcg/dL [facility] Total Iron Binding Capacity 250 228 - 428 mcg/dL [facility] Percent Iron Saturation 19 15 - 50 % [facility] Unsaturated Iron Binding 202 ug/dL [facility] 01/28/2024 9:25 AM EST 01/28/2024 11:10 AM EST us Olamide Pereyra MD LAB BLOOD ORDERAB LES Final Result Performing Organization Address City/[facility]/ZIP Co de Phone Number [facility] [address] [place] [phone] * (ABNORMAL) CBC (01/28/2024 9:25 AM EST) White Blood Count 4.8 4.8 - 10.8 X10*3/uL [facility] Red Blood Count 4.19(L) 4.60 - 5.80 X10*6/uL [facility] Hemoglobin 13.4(L) 14.0 - 18.0 g/dl [facility] Hematocrit 41.2(L) 42.0 - 52.0 % [facility] Mean Corpuscular Volume 98.3(H) 80.0 - 98.0 fL [facility] Mean Corpuscular Hemoglobin 32.0 27.0 - 33.0 pg [facility] Mean Corpuscular HGB Conc 32.5 31.0 - 36.0 g/dl [facility] Red Cell Distribution Width 14.2 11.0 - 16.0 % [facility] Platelet Count 178 160 - 400 X10*3/uL [facility] Mean Platelet Volume 10.7 9.4 - 12.4 fL [facility] NRBC Pct Auto 0.0 0.0 - 0.2 /100WBC [facility] NRBC Abs Auto 0.000 0.0 - 0.012 X10*3/uL [facility] Blood Venous blood specimen / Unknown 01/28/2024 9:25 AM EST 01/28/2024 11:04 AM EST us Olamide Pereyra MD LAB BLOOD ORDERAB LES Final Result [facility] [address] [place] [phone] * Hemoglobin A1c (01/28/2024 9:25 AM EST) Hemoglobin A1c 4.9 <6.0 % [facility] Comment:Hemoglobin A1C Refer ence Range Adults: 4.8 - 6.0 % Non diabetic: < 6.0 % Goal: < 7.0 %Additional Action Suggested: > 8.0 %Note: Hemoglobin A1c results are invalid for patients with abnormal amounts of HbF. Blood transfusions may impact the HbA1c concentration in the patient sample. Estimated Average Glucose 94 mg/dL [facility] Comment:eAG = Estimated ave rage glucose which is %A1C expressed asaverage glucose, using the formula of the N5I-DkvjobcQkqvzhu Glucose study (ADAG), Diabetes Care, Vol.31,#8,2007 Blood Venous blood specimen / Unknown 01/28/2024 9:25 AM EST 01/28/2024 11:04 AM EST Olamide Pereyra MD LAB BLOOD ORDERAB LES Final Result Performing Organization Address [facility] Co de Phone Number [facility] [address] [place] [phone] * Ferritin (01/28/2024 9:25 AM EST) Ferritin 42 20 - 250 ng/mL [facility] 01/28/2024 9:25 AM EST 01/28/2024 11:10 AM EST Olamide ePreyra MD LAB BLOOD ORDERAB LES Final Result Performing Organization Address [facility] Co ok Phone Number [facility] [address] [place] [phone] * (ABNORMAL) Lipid Panel, Standard (01/28/2024 9:25 AM EST) Triglycerides 88 <150 mg/dL [facility] Comment:Desirable Triglyceri de: less than 150 mg/dLBorderline High Triglyceride 150-199 mg/dLHigh Triglyceride: 200-499 mg/dLVery High Triglyceride: greater than or equal to 5OO mg/dL Cholesterol 118 <200 mg/dL [facility] Comment:Desirable Cholestero l: less than 200 mg/dLBorderline High Cholesterol: 200-239 mg/dLHigh Cholesterol: greater than 239 mg/dL LDL Cholesterol Calculated 63 <100 mg/dL [facility] Comment:Desirable LDL: less than 100 mg/dLNear Optimal/Above Optimal LDL: 110- 129 mg/dLBorderline High LDL: 130-159 mg/dLHigh LDL: 160-189 mg/dLVery High LDL: greater than or equal to 190 mg/dL HDL Cholesterol 38(L) >40 mg/dL [facility] Comment:Desirable HDL: great er than 40 mg/dL Note: This HDL assay may give artificially low results in patients with liver disease. Blood Venous blood specimen / Unknown 01/28/2024 9:25 AM EST 01/28/2024 11:10 AM EST us Olamide Pereyra MD LAB BLOOD ORDERAB LES Final Result [facility] [address] [place] [phone] * (ABNORMAL) Comprehensive Metabolic Panel (01/28/2024 9:25 AM EST) Sodium 143 135 - 145 mmol/L [facility] Potassium 3.9 3.3 - 5.1 mmol/L [facility] Chloride 109(H) 96 - 108 mmol/L [facility] Carbon Dioxide 26 22 - 29 mmol/L [facility] Anion Gap 12 12 - 20 [facility] Urea Nitrogen (BUN) 24(H) 9 - 16 mg/dL [facility] Creatinine, Serum 0.82 0.5 - 1.4 mg/dL [facility] Estimated Glomerular Filt Rate >60 [facility] Comment:NOTE: For -Am erican individuals, multiply the result by 1.210.Chronic Kidney Disease: Estimated GFR < 60 mL/min/1.08a7Nyirxt Kidney Disease: Estimated GFR < 15 mL/min/1.73m2 Glucose 95 60 - 115 mg/dL [facility] Calcium 9.2 8.4 - 10.2 mg/dL [facility] Bilirubin, Total 0.4 0.0 - 1.0 mg/dL [facility] Aspartate Amino Transferase 28 5 - 37 U/L [facility] Alanine Aminotransferase 22 0 - 40 U/L [facility] Total Protein 7.4 6.5 - 8.0 g/dL [facility] Albumin Level 4.4 3.5 - 5.0 g/dL [facility] Alkaline Phosphatase 91 39 - 117 U/L [facility] Blood Venous blood specimen / Unknown 01/28/2024 9:25 AM EST 01/28/2024 11:10 AM EST us Olamide Pereyra MD LAB BLOOD ORDERAB LES Final Result Performing Organization Address City/[facility]/ZIP Co de Phone Number [facility] [address] [place] [phone] * HIV-1/2 Antigen and Antibodies, Fourth Generation, with Reflexes (06/27/2023 2:23 PM EDT) [facility] HIV AB/AG Nonreactive Nonreactive [facility] Comment:HIV-1 p24 Ag and/or HIV-1/HIV-2 Ab not detected.A test result that is nonreactive does not exclude thepossibility of exposure to or infection with HIV-1 and/orHIV-2. Nonreactive results in this assay for individualswith prior exposure to HIV-1 and/or HIV-2 may be due toantigen and antibody levels that are below the limit ofdetection of this assay.The Tynt HIV Ag/Ab Combo assay result andsupplemental assay results should be interpreted inconjunction with the patient's clinical presentation,history and other laboratory results. If the results areinconsistent with clinical evidence, additional testing issuggested to confirm the result. Blood Venous blood specimen / Unknown 06/27/2023 2:23 PM EDT 06/27/2023 5:22 PM EDT us Lopez Dalton MD LAB BLOOD ORDERABLES Final Resul t [facility] [address] [place] [phone] from Last 3 Months or Most Recently Relevant to Health Maintenance Insurance spring [facility] [place] [address] [place], [place] [facility] C3 HSN FULL spring [address] DENTAL-[facility] MEDICAID STAND ADULT * Guarantor: Herb Frank Account Type Relation to Patient Date of Phone Billing Address Personal/Family Self spring [address] [place] * Guarantor: Herb Frank Account Type Relation to Patient Date of Phone Billing Address Personal/Family Self spring [address] * Guarantor: Herb Frank Account Type Relation to Patient Date of Phone Billing Address Personal/Family Self spring [address] Care Teams Information Technology Instructor Relationship Specialty Start Date End Date Jessika Griffith NP [address] [place] [phone] PCP - General Family Medicine 04/24/23
--- OUTSIDE RECORDS SUMMARY | 2024-04-24 17:33 | XMS_ITS | Encounter Summary ---
Author Organization [employer] Address [address] [facility] 7t [place] [address] Care Team Providers Care Stock Trader Name Role Phone Jessika Griffith NP Primary Care Provider [phone] Reason for Visit * Reason Comments OBAT Encounter Details Date Type Department Care Team (Latest Contact Info) Description 04/01/2024 1:00 PM EST Office Visit [facility] [address] [place], [place] [phone] Lopez Dalton MD [address] [place] [address] Opioid dependence, uncomplicated (CMS/HCC) (Primary Dx) Social History Tobacco Use Types Packs/Day Years Used Date Smoking Tobacco: Every Day Cigarettes 1.5 29.6 Started: 09/23/1994 Smokeless Tobacco: Never Alcohol Use Standard Drinks/Week Comments Never 0 [...] Orientation Straight 01/23/2022 10 :40 AM EDT documented as of this encounter Progress Notes * Lopez Dalton MD - 04/01/2024 1:00 PM EST Subjective Patient ID: Herb Frank is a 38 y.o. male. HPI Patient here today for Opioid Dependence RV. Patient on current Suboxone dose of 16/4 mg on a 4 week schedule. Patient has been in the program for 11 months. Induction date: 06/25/23 LFTs done: 06/27/23 Hep A status: 06/27/23 reactive Hep B status: 06/27/23 reactive Hep C status: 06/27/23 reactive HCVRNA < 15 (previously treated per pt) HIV status: 06/27/23 Non-reactive Behavioral Health: Has counselor and psychiatrist at [facility]. Has q 2 week appointments. Efficiency Engineer: eli ALLEN reviewed by provider. Last PCP appt: 07/04/23: Jessika Griffith NP Smoking status: 1/2-1 ppd Herb is requesting to start Sublocade today. [facility] reviewed. Wing Scorer: Helga REYNOLDSOX: + bup, thc Smokes 1/2 PPD, reduced from 2 PPD; used nicotine patches and lozenges. Now using Chantix. Has Colace. 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 Declines speaking with or production recovery operator at this time. Sees therapist q 2 weeks and psychiatrist linsey't at [facility]. Lives with female partner and 8 y.o. son in apartment. Not employed. The following portions of the chart were reviewed this encounter and updated as appropriate: Tobacco Allergies Meds Problems Med Hx Surg Hx Fam Hx Review of Systems Constitutional: Negative for fever. Respiratory: Negative for shortness of breath. Cardiovascular: Negative for chest pain. Gastrointestinal: Negative for abdominal pain. Skin: Negative for rash. Neurological: Negative for headaches. Objective Physical Exam Vitals and nursing note reviewed. Constitutional: Appearance: Normal appearance. HENT: Head: Normocephalic and atraumatic. Nose: Nose normal. Eyes: Conjunctiva/sclera: Conjunctivae normal. Pupils: Pupils are equal, round, and reactive to light. Pulmonary: Effort: Pulmonary effort is normal. Skin: General: Skin is warm and dry. Neurological: Mental Status: He is alert. Gait: Gait is intact. Psychiatric: Mood and Affect: Mood and affect normal. Behavior: Behavior normal. Procedures Assessment/Plan Diagnoses and all orders for this visit: Opioid dependence, uncomplicated ([facility]) Recovery support, harm reduction (including Narcan) and behavioral health attendance reviewed. Stop Suboxone 16/4 mg; was given 1st dose of Sublocade 300 mg today. On 4 week schedule. - POCT MARIELLE-14 Urine Drug Screen * Chiara Angeles RN - 04/01/2024 1:00 PM EST Sublocade reviewed. Patient signed initial consent form. Pt verbalized understanding. Sublocade 300mg given SQ right upper abdomen. Pt tolerated injection, no adverse reactions noted. Advised pt to call RN with any questions or concerns. documented in this encounter Miscellaneous Notes * Addendum Note - Chiara Angeles RN - 04/01/2024 1:00 PM ESTAddended by: CHIARA ANGELES on: 04/01/2024 03:07 PM Modules accepted: Orders documented in this encounter Plan of Treatment Upcoming Encounters Date Type Department Care Team (Late st Contact Info) Description 04/29/2024 1:45 PM EST Office Visit [facility] [address] [place] [address] [phone] Lopez Dalton MD [address] [place] [address] 05/26/2024 2:30 PM EST Office Visit [facility] ADULT DENTAL [address] [place] [address] Solis Chun, DMD [address] [place] [address] 05/27/2024 1:15 PM EST Clinical Support [facility] [address] [place] [address] Chiara Angeles, JOSH 06/03/2024 1:30 PM EDT Office Visit [facility] [address] [place] [address] [phone] Jessika Griffith NP [address] [place] [address] documented as of this encounter Procedures Procedure Name Priority Date/Time Associated Diagnosis Comments POCT MARIELLE-14 URINE DRUG SCREEN Routine 04/01/2024 1:13 PM EST Opioid dependence, uncomplicated (CMS/HCC) documented in this encounter Results * POCT MARIELLE-14 Urine Drug Screen (04/01/2024 1:13 PM EST) THC Positive Cocaine Screen, Urine Negative Opiate [...] procedure / Unknown 04/01/2024 1:13 PM EST Lopez Dalton MD POINT OF CARE TEST ENTER/EDIT OR DERABLES Final Result documented in this encounter Visit Diagnoses Diagnosis Opioid dependence, uncomplicated (CMS/HCC)- Primary documented in this encounter Administered Medications Inactive Administered Medications - up to 3 most recent administrations Medication Order MAR Action Action Date Dose Rate Site buprenorphine ER (Sublocade) 300 mg/1.5mL injection 1 each 1 each, Subcutaneous, Over 1 month, First dose on Sun04/01/24 at 1515, For 1 dose, For abdominal subcutaneous injection only Remove Sublocade from the fridge at least 15 minutes prior to administration. Discard if left at room temperature for longer than 7 days. Do not open the foil pouch until patient arrives. See package insert for specific administration instructions. Do not administer intravenously or intramuscularly.Indication s:Opioid dependence, uncomplicated (CMS/[facility]) Given 04/01/2024 3:15 PM EST 1 each Right Upper Abdomen documented in this encounter Additional Health Concerns Assessment Noted Time PHQ-9 Depression Total Score: 0 07/04/19 24 10:45 AM EDT documented as of this encounter Care Teams Stock Trader Relationship Specialty Start Date End Date Jessika Griffith NP [address] [place] [phone] PCP - General Family Medicine 04/24/23 documented as of this encounter
--- OUTSIDE RECORDS SUMMARY | 2024-04-24 17:33 | XMS_ITS | Encounter Summary ---
Author Organization [employer] Address [address] [facility] 7t [place] [address] Care Team Providers Care Cable Armorer Name Role Phone LauraJessika fontanez ANIKA Primary Care Provider [phone] Encounter Details Date Type Department Care Team (Latest Contact Info) Description 04/01/2024 Travel Social History Tobacco Use Types Packs/Day Years [...] AM EDT documented as of this encounter Plan of Treatment Upcoming Encounters Date Type Department Care Team (Late st Contact Info) Description 04/29/2024 1:45 PM EST Office Visit [facility] [address] [place] [address] Lopez Dalton MD [address] [place] [address] 05/26/2024 2:30 PM EST Office Visit [facility] ADULT DENTAL [address] [place] [address] Solis Chun DMD [address] [place] [address] 05/27/2024 1:15 PM EST Clinical Support [facility] [address] [place] [address] Chiara Angeles RN 06/03/2024 1:30 PM EDT Office Visit [address] [address] Jessika Griffith NP [address] [place] [address] documented as of this encounter Visit Diagnoses Not on filedocumented in this encounter Additional Health Concerns Assessment Noted Time PHQ-9 Depression Total Score: 0 07/04/19 10:45 AM EDT documented as of this encounter Care Teams Cable Armorer Relationship Specialty Start Date End Date Jessika Griffith NP [address] [place] [phone] PCP - General Family Medicine 04/24/23 documented as of this encounter
--- OUTSIDE RECORDS SUMMARY | 2024-04-24 17:33 | XMS_ITS | Encounter Summary ---
Author Organization [employer] Address [address] [facility] 7t [place] [address] Care Team Providers Care Impersonator Character Name Role Phone LauraJessika fontanez ANIKA Primary Care Provider Encounter Details Date Type Department Care Team (Latest Contact Info) Description 04/23/2024 Travel Social History Tobacco Use Types Packs/Day [...] Description 04/29/2024 1:45 PM EST Office Visit [facility] [address] [place] [address] Lopez Dalton MD [address] [place] [address] 05/26/2024 2:30 PM EST Office Visit [facility] ADULT DENTAL [address] [place] [address] Solis Chun DMD [address] [place] [address] 05/27/2024 1:15 PM EST Clinical Support [facility] [address] [place] [address] Chiara Angeles RN 06/03/2024 1:30 PM EDT Office Visit [address] [address] Jessika Griffith NP [address] [place] [address] documented as of this encounter Visit Diagnoses Not on filedocumented in this encounter Additional Health Concerns Assessment Noted Time PHQ-9 Depression Total Score: 0 07/04/19 10:45 AM EDT documented as of this encounter Care Teams Impersonator Character Relationship Specialty Start Date End Date Jessika Griffith NP [address] [place] [phone] PCP - General Family Medicine 04/24/23 documented as of this encounter
--- OUTSIDE RECORDS SUMMARY | 2024-04-24 17:33 | XMS_ITS | Encounter Summary ---
Author Organization [employer] Address [address] [facility] [address] 7t [place] [address] Care Team Providers Care Log Handling Equipment Operator Name Role Phone Jessika Griffith NP Primary Care Provider [phone] Encounter Details Date Type Department Care Team (Late st Contact Info) Description 04/01/2024 Orders Only [facility] [address] [place] [address] Chiara Angeles RN Opioid dependence, uncomplicated (CMS/HCC) (Primary Dx) Social [...] Description 04/29/2024 1:45 PM EST Office Visit [facility] [address] [place] [address] Lopez Dalton MD [address] [place] [address] 05/26/2024 2:30 PM EST Office Visit [facility] ADULT DENTAL [address] [place] [address] Solis Chun, VIKA [address] [place] [address] 05/27/2024 1:15 PM EST Clinical Support [address] [address] Chiara Angeles RN 06/03/2024 1:30 PM EDT Office Visit [address] [address] Jessika Griffith NP [address] [place] [phone] documented as of this encounter Visit Diagnoses Diagnosis Opioid dependence, uncomplicated (CMS/HCC)- Primary documented in this encounter Additional Health Concerns Assessment Noted Time PHQ-9 Depression Total Score: 0 07/04/19 24 10:45 AM EDT documented as of this encounter Care Teams Log Handling Equipment Operator Relationship Specialty Start Date End Date Jessika Griffith NP [address] [place] [phone] PCP - General Family Medicine 04/24/23 documented as of this encounter
--- OUTSIDE RECORDS SUMMARY | 2024-04-24 17:33 | XMS_ITS | Encounter Summary ---
Author Organization [employer] Address [address] [facility] 7t [place] [address] Care Team Providers Care Phytochemistry Professor Name Role Phone Jessika Griffith NP Primary Care Provider [phone] Reason for Visit * Reason Onset Date Comments Recall 04/03/2024 Encounter Details Date Type Department Care Team (Late st Contact Info) Description 04/03/2024 Telephone [facility] [address] [place] [address] Sofía Sargent MA Recall Social History Tobacco Use Types Packs/Day Years [...] AM EDT documented as of this encounter Miscellaneous Notes * Telephone Encounter - Sofía Sargent MA - 04/03/2024 2:42 PM EST 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 Recall letter sent. Appointment: Office Visit Note: Month: May With: Etelvina documented in this encounter Plan of Treatment Upcoming Encounters Date Type Department Care Team (Late st Contact Info) Description 04/29/2024 1:45 PM EST Office Visit [facility] MEDICINE [address] [place] [address] Lopez Dalton MD [address] [place] [phone] 05/26/2024 2:30 PM EST Office Visit [facility] ADULT DENTAL [address] [place] [address] Solis Chun DMD [address] [place] [address] 05/27/2024 1:15 PM EST Clinical Support [facility] [address] [place] [address] Chiara Angeles RN 06/03/2024 1:30 PM EDT Office Visit [facility] [address] [place] [address] Jessika Griffith NP [address] [place] [address] documented as of this encounter Visit Diagnoses Not on filedocumented in this encounter Additional Health Concerns Assessment Noted Time PHQ-9 Depression Total Score: 0 07/04/19 24 10:45 AM EDT documented as of this encounter Care Teams Phytochemistry Professor Relationship Specialty Start Date End Date Jessika Griffith NP [address] [place] [address] PCP - General Family Medicine 04/24/23 documented as of this encounter
--- OUTSIDE RECORDS SUMMARY | 2024-04-24 17:33 | XMS_ITS | Encounter Summary ---
Author Organization [employer] Address [address] [facility] 7t [place] [address] Care Team Providers Care Plant Quality Manager Name Role Phone Jessika Griffith NP Primary Care Provider [phone] Encounter Details Date Type Department Care Team (Late st Contact Info) Description 10/16/2023 Orders Only [facility] [address] [place], [place] [phone] Lopez Dalton MD [address] [place], [place] [phone] Opioid use disorder Social History Tobacco Use Types Packs/Day Years [...] What is your housing situation today? I do not have housing (Staying with others, in a hotel, in a senior care, living outside on the street, on a beach, in a car, or in a park 12/31/[address] you li ve. Do you have problems with any of the following? Pests such as bugs, ants, or mice 12/31/2022 Food Insecurity Answer Date Recorded Within the past 12 months, y ou worried that your food would run out before you got money to buy more: Sometimes True 2022 Within the past 12 months,th e food you bought just didn't last and you didn't have enough money to get more: Sometimes True 01/29/2023 Transportation Answer Date Recorded In the past 12 months, has l ack of transportation kept you from medical appts, meetings, work or from getting things needed for daily living? No 01/29/2023 Utilities Answer Date Recorded In the past 12 months, has t he electric, gas, oil or water company threatened to shut off services in your home? No 01/29/2023 Depression Answer Date Recorded Patient Health Questionnaire-2 Score 0 07/04/2023 Sex and Gender Information Value Date Recorded Sex Assigned at Male 01/23/2022 10:40 AM EDT Legal Sex Male 10:40 AM EDT Gender Identity Male 01/23/2022 10:40 AM EDT Sexual Orientation Straight 01/23/2022 10 :40 AM EDT documented as of this encounter Plan of Treatment Upcoming Encounters Date Type Department Care Team (Late st Contact Info) Description 04/29/2024 1:45 PM EST Office Visit [facility] [address] [place] [phone] Lopez Dalton MD [address] [place] [address] 05/26/2024 2:30 PM EST Office Visit [facility] [address] [place] [address] Solis Chun DMD [address] [place] [address] 05/27/2024 1:15 PM EST Clinical Support [facility] [address] [place] [address] Chiara Angeles RN 06/03/2024 1:30 PM EDT Office Visit [address] [address] Jessika Griffith NP [address] [place] [address] documented as of this encounter Visit Diagnoses Diagnosis Opioid use disorder documented in this encounter Additional Health Concerns Assessment Noted Time PHQ-9 Depression Total Score: 0 07/04/19 24 10:45 AM EDT documented as of this encounter Care Teams Plant Quality Manager Relationship Specialty Start Date End Date Jessika Griffith NP [address] [place] [address], [place] [address] PCP - General Family Medicine 04/24/23 documented as of this encounter
== END 2024-04-24 13:42 | disposition home or self-care (01) ==
LOC: HO.US 13:41
PROVIDERS: PCP Registered Nurse; Visit Provider Student in an Organized Health Care Education/Training Program
DX: Z13.89 Encounter for screening for other disorder (principal)

== ENCOUNTER 2024-07-04 14:11 | Outpatient (REF) | payer MEDICAID, SELFPAY ==
--- OUTSIDE RECORDS SUMMARY | 2024-07-04 14:32 | XMS_ITS | Encounter Summary ---
Author Organization [employer] Address [address] [facility] 7t [place] [address] Care Team Providers Care Rodding Machine Tender Name Role Phone Jessika Griffith NP Primary Care Provider [phone] Encounter Details Date Type Department Care Team (Late st Contact Info) Description 10/16/2023 Orders Only [facility] [address] [place], [place] [phone] Lopez Dalton MD [address] [place], [place] [phone] Opioid use disorder Social History Tobacco Use Types Packs/Day Years Used Date Smoking Tobacco: Every Day Cigarettes 1.5 29.8 Started: 09/23/1994 Smokeless Tobacco: Never Alcohol Use [...] with others, in a hotel, in a detention, living outside on the street, on a [...] Care Team (Late st Contact Info) Description 07/07/2024 9:00 AM EDT Office Visit [facility] [address] [place] [address] Lorna Thurston NP [address] [place] [address] 07/21/2024 2:30 PM EDT Office Visit [facility] ADULT D[facility] [address] [place] [address] Solis Chun DMD [address] [place] [address] 07/22/2024 3:00 PM EDT Office Visit [facility] [address] [place] [address] Lopez Dalton MD [address] [place] [address] 07/24/2024 2:00 PM EDT Office Visit [facility] [address] [place] [address] Madeline Guerra 09/08/2024 1:45 PM EDT Office Visit [facility] [address] [place] [address] Jessika Griffith NP [address] [place] [address] documented as of this encounter Visit Diagnoses Diagnosis Opioid use disorder documented in this encounter Additional Health Concerns Assessment Noted Time PHQ-9 Depression Total Score: 0 07/04/19 10:45 AM EDT documented as of this encounter Care Teams Rodding Machine Tender Relationship Specialty Start Date End Date Jessika Griffith NP [address] [place] [address] PCP - General Family Medicine 04/24/23 documented as of this encounter
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
--- OUTSIDE RECORDS SUMMARY | 2024-07-04 14:32 | XMS_ITS | Encounter Summary ---
Author Organization [employer] Address [address] [place] [address] [address] [place] [address] Care Team Providers Care Denier Control Operator Name Role Phone Jessika Griffith PROJECT MANAGER/DESIGN MANAGER Primary Care Provider [phone] Reason for Visit * Reason Onset Date Comments Nurse Triage 07/01/2024 Encounter Details Date Type Department Care Team (Late st Contact Info) Description 07/01/2024 Telephone [facility] MEDICINE [address] [place], [place] [phone] Jessika Griffith NP [address] [place] [address] Nurse Triage Social History Tobacco Use Types Packs/Day Years [...] encounter Miscellaneous Notes * Telephone Encounter - Emily Rod RN - 07/01/2024 11:39 AM EDT Called pt. Via [employer]. Pt. answered and is on HIPAA and speaks Arabic. Called Pt. back. states that pt. Has been having urinary incontinence x a few years. Pt. Also is having problems with getting an erection or maintaining an erection. Pt. Has not had anyprostate checks and Pt. looking for possible referrals blood work to find out if there is a medical reason behind concerns. Appt made for 07/04/24 at 130pm with som Thurston NP. Protocol Used: Penis and Scrotum Symptoms (Adult) Protocol-Based Disposition: See in Office or Video Visit within 3 Days Positive Triage Question: * ALL other penis - scrotum symptoms (Exception: Painless rash < 24 hours duration.) * All higher-acuity triage questions were negative Protocol Used: Urinary Symptoms (Adult) Protocol-Based Disposition: See in Office or Video Visit within 2 Weeks Positive Triage Question: * Can't control passage of urine (i.e., urinary incontinence, wetting self) and present > 2 weeks * All higher-acuity triage questions were negative * Telephone Encounter - Meron Coppola - 07/01/2024 11:35 AM EDT Symptom: Urine Symptoms Outcome: Schedule a same-day appointment or talk to a nurse or provider today Reason: Caller denied all higher acuity questions The caller accepted this outcome. [phone] *Pt requesting Urologist referral (Incontinence problems.) documented in this encounter Plan of Treatment Upcoming Encounters Date Type Department Care Team (Late st Contact Info) Description 07/07/2024 9:00 AM EDT Office Visit [facility] [address] [place] [address] Som Thurston NP [address] [place] [address] 07/21/2024 2:30 PM EDT Office Visit [facility] ADULT DENTAL [address] [place] [address] Solis Chun DMD [address] [place] [address] 07/22/2024 3:00 PM EDT Office Visit [facility] MEDICINE [address] [place] [address] Lopez Dalton MD [address] [place] [address] 07/24/2024 2:00 PM EDT Office Visit [facility] ADULT DENTAL [address] [place] [address] Madeline Guerra 09/08/2024 1:45 PM EDT Office Visit [facility] MED[facility] [address] [place] [address] Jessika Griffith NP [address] [place] [address] documented as of this encounter Goals Goal Patient Goal Type Associated Problems Recent Progress Patient-Stated? Author Improve quality of life by maintaining ongoing abstinence from all mood-altering substances General No Josué Elizondo, RN documented as of this encounter Visit Diagnoses Not on filedocumented in this encounter Additional Health Concerns Assessment Noted Time PHQ-9 Depression Total Score: 18 025 2:05 PM EDT documented as of this encounter Care Teams Denier Control Operator Relationship Specialty Start Date End Date Jessika Griffith NP [address] [place] [address] PCP - General Family Medicine 04/24/23 documented as of this encounter
--- OUTSIDE RECORDS SUMMARY | 2024-07-04 14:32 | XMS_ITS | Encounter Summary ---
Author Organization [employer] Address [address] [facility] [address] [place] [address] Care Team Providers Care Senior Escrow Officer Name Role Phone Jessika Griffith HYDRO MECHANIC Primary Care Provider [phone] Encounter Details Date Type Department Care Team (Late st Contact Info) Description 07/04/2024 Telephone [facility] MED[facility]INE [address] [place], [place] [phone] Jessika Griffith NP [address] [place], [place] [phone] Social History Tobacco Use Types Packs/Day Years [...] Description 07/07/2024 9:00 AM EDT Office Visit [facility] MED[facility] [address] [place] [address] Lorna Thurston NP [address] [place] [address] 07/21/2024 2:30 PM EDT Office Visit [facility] ADULT DENTAL [address] [place] [address] Solis Chun DMD [address] [place] [address] 07/22/2024 3:00 PM EDT Office Visit [facility] MED[facility] [address] [place] [address] Lopez Dalton MD [address] [place] [address] 07/24/2024 2:00 PM EDT Office Visit [facility] ADULT DENTAL [address] [place] [address] Madeline Guerra 09/08/2024 1:45 PM EDT Office Visit [facility] MED[facility] [address] [place] [address] Jessika Griffith NP [address] [place] [address] documented as of this encounter Goals Goal [...] documented as of this encounter Care Teams Senior Escrow Officer Relationship Specialty Start Date End Date Jessika Griffith NP [address] [place] [address] PCP - General Family Medicine 04/24/23 documented as of this encounter
[2024-07-04 16:02] LABS: MANUAL DIFF FLAG NO
[2024-07-04 16:12] LABS: Basophils Percent Auto 0.2 % (0-2); Eosinophils Absolute Auto 0.1 X10*3/uL (0.0-0.4); Eosinophils Percent Auto 1.2 % (0-4); Hematocrit 40.6 % (42.0-52.0); Hemoglobin 13.4 g/dl (14.0-18.0); Imm Gran Abs Auto 0.01 X10*3/uL (0.00-0.03); Imm Gran Pct Auto 0.2 % (0.0-0.4); Lymphocytes Absolute Auto 1.6 X10*3/uL (1.2-4.9); Lymphocytes Percent Auto 31.5 % (20-40); Mean Corpuscular Hemoglobin 32.1 pg (27.0-33.0); Mean Corpuscular Volume 97.4 fL (80.0-98.0); Mean Platelet Volume 10.3 fL (9.4-12.4); Monocytes Absolute Auto 0.4 X10*3/uL (0.1-1.2); Monocytes Percent Auto 7.6 % (2-11); Neutrophils Percent Auto 59.3 % (45-73); Platelet Count 254 X10*3/uL (160-400); Red Blood Count 4.17 X10*6/uL (4.60-5.80); Red Cell Distribution Width 13.2 % (11.0-16.0)
[2024-07-04 16:40] LABS: Ferritin 136 ng/mL (20-250)
[2024-07-04 16:48] LABS: TSH reflex Free T4 0.77 uIU/mL (0.32-4.0)
[2024-07-04 16:56] LABS: Alanine Aminotransferase 23 U/L (0-40); Albumin Level 4.9 g/dL (3.5-5.0); Alkaline Phosphatase 93 U/L (39-117); Anion Gap 13 (12-20); Aspartate Amino Transferase 20 U/L (5-37); Bilirubin Total 0.4 mg/dL (0.0-1.0); Blood Urea Nitrogen 21 mg/dL (9-16); Calcium 9.6 mg/dL (8.4-10.2); Carbon Dioxide 28 mmol/L (22-29); Chloride 106 mmol/L (96-108); Estimated Glomerular Filt Rate > 60; Glucose Random 93 mg/dL (60-115); Iron 84 mcg/dL (45-160); Percent Iron Saturation 36 % (15-50); Potassium 4.2 mmol/L (3.3-5.1); Sodium 143 mmol/L (135-145); Total Iron Binding Capacity 234 mcg/dL (228-428); Total Protein 8.3 g/dL (6.5-8.0); Unsaturated Iron Binding 150 ug/dL
[2024-07-04 16:58] LABS: Folate 11.8 ng/mL (> or = 4.0); Vitamin B12 301 pg/mL (200-900)
[2024-07-07 08:27] LABS: HBS Num1 > 1000.00 mIU/mL (0-7.99); HBc Num1 0.05 S/CO (0.00-0.79); Hepatitis B Core Antibody Nonreactive (Nonreactive); Hepatitis B Surface Antigen Negative (Negative); ~Hepatitis B Surface Antibody REACTIVE (Nonreactive)
== END 2024-07-04 14:12 | disposition home or self-care (01) ==
LOC: HO.HHCL 14:11
PROVIDERS: Student in an Organized Health Care Education/Training Program; Visit Provider Nurse Practitioner Family
DX: Z00.00 Encounter for general adult medical examination without abnormal findings (principal); G25.81 Restless legs syndrome; R53.1 Weakness; Z86.19 Personal history of other infectious and parasitic diseases
CPT/HCPCS: 36415; 80053; 82607; 82728; 82746; 83540; 84443; 85025; 86704; 86706; 87340

== ENCOUNTER 2024-07-07 10:08 | Outpatient (REF) | payer MEDICAID, SELFPAY ==
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
--- OUTSIDE RECORDS SUMMARY | 2024-07-07 11:27 | XMS_ITS | Encounter Summary ---
Author Organization [employer] Address [address] [place] [address] Care Team Providers Care Aluminum Shingle Roofer Name Role Phone LauraJessika fontanez ANIKA Primary Care Provider [phone] Encounter Details Date Type Department Care Team (Late st Contact Info) Description 10/16/2023 Orders Only [facility] [address] [place], [place] [phone] Lopez Dalton MD [address] [place], [place] [phone] Opioid use disorder Social History Tobacco Use [...] with others, in a hotel, in a penitentiary, living outside on the street, on a [...] Description 07/21/2024 2:30 PM EDT Office Visit [facility] [address] [place] [phone] Solis Chun DMD [address] [place] [address] 07/22/2024 3:00 PM EDT Office Visit [facility] [address] [place] [address] [phone] Lopez Dalton MD [address] [place] [address] 07/24/2024 2:00 PM EDT Office Visit [facility] [address] [place] [phone] Madeline Guerra 09/08/2024 1:45 PM EDT Office Visit [facility] [address] [place] [address] [phone] Jessika Griffith NP [address] [place] [address] documented as of this encounter Visit Diagnoses Diagnosis Opioid use disorder documented in this encounter Additional Health Concerns Assessment Noted Time PHQ-9 Depression Total Score: 0 07/04/19 24 10:45 AM EDT documented as of this encounter Care Teams Aluminum Shingle Roofer Relationship Specialty Start Date End Date Jessika Griffith NP [address] [place] [phone] PCP - General Family Medicine 04/24/23 documented as of this encounter
--- OUTSIDE RECORDS SUMMARY | 2024-07-07 11:27 | XMS_ITS | Encounter Summary ---
Author Organization [employer] Address [address] [place] [address] Care Team Providers Care Pharmacologist Name Role Phone Jessika Griffith ANIKA Primary Care Provider [phone] Encounter Details Date Type Department Care Team (Late st Contact Info) Description 07/04/2024 Orders Only [facility] [address] [place], [place] [phone] Olamide Barkley MD [address] [place], [place] [phone] Social History Tobacco Use Types Packs/Day Years [...] Description 07/21/2024 2:30 PM EDT Office Visit [facility] [address] [place] [phone] Solis Chun DMD [address] [place] [address] 07/22/2024 3:00 PM EDT Office Visit [facility] [address] [place] [address] [phone] Lopez Dalton MD [address] [place] [address] 07/24/2024 2:00 PM EDT Office Visit [facility] [address] [place] [address] Madeline Guerra 09/08/2024 1:45 PM EDT Office Visit [facility] [address] [place] [address] [phone] Jessika Griffith NP [address] [place] [address] documented as of this encounter Goals Goal Patient Goal Type Associated Problems Recent Progress Patient-Stated? Author Improve quality of life by maintaining ongoing abstinence from all mood-altering substances General No Josué Elizondo, RN documented as of this encounter Procedures Procedure Name Priority Date/Time Associated Diagnosis Comments FERRITIN Routine 07/04/2024 2:14 PM EDT documented in this encounter Results * Ferritin (07/04/2024 2:14 PM EDT) Ferritin 136 20 - 250 ng/mL [facility] 07/04/2024 2:14 PM EDT 07/04/2024 3:58 PM EDT Olamide Pereyra MD LAB BLOOD ORDERAB LES Final Result [facility] [address] [place] [address] [phone] documented in this encounter Visit Diagnoses Not on filedocumented in this encounter Additional Health Concerns Assessment Noted Time PHQ-9 Depression Total Score: 18 025 2:05 PM EDT documented as of this encounter Care Teams Pharmacologist Relationship Specialty Start Date End Date Jessika Griffith NP [address] [place] [phone] PCP - General Family Medicine 04/24/23 documented as of this encounter
--- OUTSIDE RECORDS SUMMARY | 2024-07-07 11:27 | XMS_ITS | Encounter Summary ---
Author Organization [employer] Address [address] [facility] 7t [place] [address] Care Team Providers Care Yield Engineer Name Role Phone Jessika Griffith ANIKA Primary Care Provider [phone] Encounter Details Date Type Department Care Team (Latest Contact Info) Description 07/07/2024 Travel Social History Tobacco Use Types Packs/Day [...] Description 07/21/2024 2:30 PM EDT Office Visit [facility] ADULT DENTAL [address] [place] [address] Solis Chun DMD [address] [place] [address] 07/22/2024 3:00 PM EDT Office Visit [facility] MEDICINE [address] [place] [address] Lopez Dalton MD [address] [place] [address] 07/24/2024 2:00 PM EDT Office Visit [facility] ADULT DENTAL [address] [place] [address] Madeline Guerra 09/08/2024 1:45 PM EDT Office Visit [facility] MEDICINE [address] [place] [address] Jessika Griffith NP [address] [place] [address] documented as of this encounter Goals Goal Patient Goal Type Associated Problems Recent Progress Patient-Stated? Author Improve quality of life by maintaining ongoing abstinence from all mood-altering substances General No Josué Elizondo, RN documented as of this encounter Visit Diagnoses Not on filedocumented in this encounter Additional Health Concerns Assessment Noted Time PHQ-9 Depression Total Score: 18 06/03/2 025 2:05 PM EDT documented as of this encounter Care Teams Yield Engineer Relationship Specialty Start Date End Date Jessika Griffith NP [address] [place] [phone] PCP - General Family Medicine 04/24/23 documented as of this encounter
--- OUTSIDE RECORDS SUMMARY | 2024-07-07 11:27 | XMS_ITS | Encounter Summary ---
Author Organization [employer] Address [address] [facility] 7t [place] [address] Care Team Providers Care Referral Rn Name Role Phone Jessika Griffith NP Primary Care Provider [phone] Reason for Visit * Reason Comments sick onsite Encounter Details Date Type Department Care Team (Late st Contact Info) Description 07/07/2024 9:00 AM EDT Office Visit [facility] MEDICINE [address] [place], [place] [phone] Lorna Thurston NP [address] [place], [place] [phone] Erectile dysfunction, unspecified erectile dysfunction type (Primary Dx); Dysuria; Urinary frequency Social History Tobacco Use Types Packs/Day Years [...] AM EDT documented as of this encounter Last Filed Vital Signs Vital Sign Reading [...] Mass Index 22.96 07/07/2024 9:07 AM EDT documented in this encounter Miscellaneous Notes * Assessment & Plan Note - Lorna Thurston NP - 07/07/2024 9:13 AM EDTAssociated Problem(s): Erectile dysfunction -likely drug induced w/ sublocade injections and tobacco dependence -lipid and A1c completed 5 months ago WNL -was previously referred to urology in 2022. -continues to smoke 2 packs of cigs per day. - documented in this encounter Plan of Treatment Upcoming Encounters Date Type Department Care Team (Late st Contact Info) Description 07/21/2024 2:30 PM EDT Office Visit [facility] ADULT DENTAL [address] [place] [address] Solis Chun, VIKA [address] [place] [address] 07/22/2024 3:00 PM EDT Office Visit [facility] MEDICINE [address] [place] [phone] Lopez Dalton MD [address] [place] [address] 07/24/2024 2:00 PM EDT Office Visit [facility] ADULT DENTAL [address] [place] [address] Madeline Guerra 09/08/2024 1:45 PM EDT Office Visit [facility] MEDICINE [address] [place] [address] Jessika Griffith NP [address] [place] [address] Scheduled Orders Name Type Priority Associated Diagnoses Orde r Schedule PSA, Screen Lab Routine Urinary frequency Expected: 07/07/2024 (Approximate), Expires: 07/07/2025 Chlamydia/N. Gonorrhoeae RNA, TMA, Urine Microbiology Routine Dysuria Expected: 07/07/2024 (Approximate), Expires: 07/07/2025 Mycoplasma/Ureaplasma? ?Panel Microbiology Routine Dysuria Expected: 07/07/2024 (Approximate), Expires: 07/07/2025 Testosterone, Total, males (Adult), IA Lab Routine Erectile dysfunction, unspecified erectile dysfunction type Expected: 07/07/2024, Expires: 07/07/2025 documented as of this encounter Goals Goal Patient Goal Type Associated Problems Recent Progress Patient-Stated? Author Improve quality of life by maintaining ongoing abstinence from all mood-altering substances General No Josué Elizondo, RN documented as of this encounter Visit Diagnoses Diagnosis Erectile dysfunction, unspecified erectile dysfunction type- Primary Dysuria Urinary frequency documented in this encounter Additional Health Concerns Assessment Noted Time PHQ-9 Depression Total Score: 18 025 2:05 PM EDT documented as of this encounter Care Teams Referral Rn Relationship Specialty Start Date End Date Jessika Griffith NP [address] [place] [phone] PCP - General Family Medicine 04/24/23 documented as of this encounter
--- OUTSIDE RECORDS SUMMARY | 2024-07-07 11:27 | XMS_ITS | Encounter Summary ---
Author Organization [employer] Address [address] [facility] 7t [place] [address] Care Team Providers Care Ip/Mosaic Technician Name Role Phone Jessika Griffith NP Primary Care Provider [phone] Encounter Details Date Type Department Care Team (Late st Contact Info) Description 07/04/[address] [facility] MEDICINE [address] [place], [place] [phone] Jessika Griffith NP [address] [place], [place] [phone] Social History Tobacco Use Types Packs/Day Years [...] encounter Miscellaneous Notes * Telephone Encounter - Jossy Pereyra - 07/04/2024 2:26 PM EDT Pt arrived at 1:51pm for 1:30pm sick on site appt. Because the patient could not await for a noshow, he requested to reschedule. Appt rescheduled for 07/07/24 @ 9am sick on site appt with Lorna Thurston. documented in this encounter Plan of Treatment Upcoming Encounters Date Type Department Care Team (Late st Contact Info) Description 07/21/2024 2:30 PM EDT Office Visit [facility] ADULT DENTAL [address] [place] [phone] Solis Chun, VKIA [address] [place] [address] 07/22/2024 3:00 PM EDT Office Visit [facility] MEDICINE [address] [place] [phone] Lopez Dalton MD [address] [place] [address] 07/24/2024 2:00 PM EDT Office Visit [facility] ADULT DENTAL [address] [place] [address] Madeline Guerra 09/08/2024 1:45 PM EDT Office Visit [facility] MEDICINE [address] [place] [address] Jessika Griffith NP [address] [place] [address] documented as of this encounter Goals Goal [...] documented as of this encounter Care Teams Ip/Mosaic Technician Relationship Specialty Start Date End Date Jessika Griffith NP [address] [place] [address] PCP - General Family Medicine 04/24/23 documented as of this encounter
[2024-07-07 12:07] LABS: Alanine Aminotransferase 20 U/L (0-40); Albumin Level 4.8 g/dL (3.5-5.0); Anion Gap 13 (12-20); Aspartate Amino Transferase 35 U/L (5-37); Bilirubin Total 0.3 mg/dL (0.0-1.0); Blood Urea Nitrogen 18 mg/dL (9-16); Calcium 9.7 mg/dL (8.4-10.2); Carbon Dioxide 25 mmol/L (22-29); Chloride 107 mmol/L (96-108); Estimated Glomerular Filt Rate > 60; Glucose Random 98 mg/dL (60-115); Iron 86 mcg/dL (45-160); Percent Iron Saturation 35 % (15-50); Potassium 5.1 mmol/L (3.3-5.1); Sodium 140 mmol/L (135-145); Total Iron Binding Capacity 249 mcg/dL (228-428); Total Protein 8.4 g/dL (6.5-8.0); Unsaturated Iron Binding 163 ug/dL
[2024-07-07 12:08] LABS: Prostate Specific Antigen Scr 0.24 ng/mL (<0.05-4.0)
[2024-07-07 12:29] LABS: TSH reflex Free T4 1.06 uIU/mL (0.32-4.0)
[2024-07-07 12:32] LABS: Alkaline Phosphatase 99 U/L (39-117)
[2024-07-08 04:18] LABS: CT PCR NOT DETECTED (Not Detect.); NG PCR NOT DETECTED (Not Detect.)
[2024-07-11 15:28] LABS: Testosterone, Total 484 ng/dL (250-1100)
[2024-07-12 11:08] LABS: Mycoplasma genitalium RNA Not Detected (Not Detected); Mycoplasma hominis PCR Not Detected (Not Detected); Ureaplasma parvum PCR Not Detected (Not Detected); Ureaplasma urealyticum PCR Not Detected (Not Detected)
== END 2024-07-07 10:09 | disposition home or self-care (01) ==
LOC: HO.HHCL 10:08
PROVIDERS: Nurse Practitioner Family; Visit Provider Nurse Practitioner
DX: G25.81 Restless legs syndrome (principal); R53.1 Weakness; Z86.19 Personal history of other infectious and parasitic diseases; R30.0 Dysuria; N52.9 Male erectile dysfunction, unspecified; R35.0 Frequency of micturition
CPT/HCPCS: 36415; 80053; 83540; 84153; 84403; 84443; 87491; 87563; 87591; 87798

== ENCOUNTER 2024-09-08 14:36 | Outpatient (REF) | payer MEDICAID, SELFPAY ==
[2024-09-08 16:12] LABS: MANUAL DIFF FLAG NO
--- OUTSIDE RECORDS SUMMARY | 2024-09-08 16:20 | XMS_ITS | Encounter Summary ---
Author Organization [employer] Address [address] [facility] 7t [place] [address] Care Team Providers Care Factory Maintenance Manager Name Role Phone LauraJessika fontanez ANIKA Primary Care Provider [phone] Encounter Details Date Type Department Care Team (Late st Contact Info) Description 10/16/2023 Orders Only [facility] [address] [place], [place] [phone] Lopez Dalton MD [address] [place], [place] [phone] Opioid use disorder Social History Tobacco Use Types Packs/Day Years Used Date Smoking Tobacco: Every Day Cigarettes 1.5 30 Started: 09/23/1994 Smokeless Tobacco: Never Alcohol Use [...] Care Team (Late st Contact Info) Description 11/03/2024 10:15 AM EDT Office Visit [facility] MEDICINE [address] [place] [phone] Jessika Griffith NP [address] [place] [address] documented as of this encounter Visit Diagnoses Diagnosis Opioid use disorder documented in this encounter Additional Health Concerns Assessment Noted Time PHQ-9 Depression Total Score: 0 07/04/19 10:45 AM EDT documented as of this encounter Care Teams Factory Maintenance Manager Relationship Specialty Start Date End Date Jessika Griffith NP [address] [place] [address] PCP - General Family Medicine 04/24/23 documented as of this encounter
[2024-09-08 16:22] LABS: Basophils Percent Auto 0.4 % (0-2); Eosinophils Percent Auto 0.5 % (0-4); Hematocrit 44.4 % (42.0-52.0); Hemoglobin 14.8 g/dl (14.0-18.0); Imm Gran Abs Auto 0.02 X10*3/uL (0.00-0.03); Imm Gran Pct Auto 0.4 % (0.0-0.4); Lymphocytes Absolute Auto 1.5 X10*3/uL (1.2-4.9); Mean Corpuscular HGB Conc 33.3 g/dl (31.0-36.0); Mean Corpuscular Hemoglobin 31.6 pg (27.0-33.0); Mean Corpuscular Volume 94.7 fL (80.0-98.0); Mean Platelet Volume 10.3 fL (9.4-12.4); Monocytes Absolute Auto 0.4 X10*3/uL (0.1-1.2); Monocytes Percent Auto 7.1 % (2-11); Neutrophils Absolute Auto 3.5 x10*3/uL (2.0-8.3); Neutrophils Percent Auto 63.6 % (45-73); Platelet Count 239 X10*3/uL (160-400); Red Blood Count 4.69 X10*6/uL (4.60-5.80); Red Cell Distribution Width 12.5 % (11.0-16.0); White Blood Count 5.5 X10*3/uL (4.8-10.8)
[2024-09-09 03:56] LABS: HIV AB/AG Nonreactive (Nonreactive); HIV Num 1 0.07 S/CO (0.00-0.99); ~HepC Num1 13.67 S/CO (0.00-0.79); ~Hepatitis C Antibody Reactive (Nonreactive)
[2024-09-11 01:54] LABS: TS Negative Control Passed; TS Panel A 1; TS Panel B 0; TS Positive Control Passed; TSpotTB Negative (Negative)
[2024-09-11 14:19] LABS: HCV Log PCR <1.18 NOT DETECTED Log IU/mL (NOT DETECTED); HepC Viral Load <15 NOT DETECTED IU/mL (NOT DETECTED)
== END 2024-09-08 14:37 | disposition home or self-care (01) ==
LOC: HO.HHCL 14:36
PROVIDERS: Visit Provider Nurse Practitioner Family
DX: R63.4 Abnormal weight loss (principal)
CPT/HCPCS: 36415; 85025; 86481; 86803; 87389; 87522

== ENCOUNTER 2025-01-02 15:15 | Outpatient (AMB) | payer MEDICAID, SELFPAY ==
--- NOTE | 2025-01-02 15:29 | A.OFFVIS_ITS ---
Intake Visit Reasons: Erectile Dysfunction Intake Note: patient presents today for: new pt ED urology medications: none blood thinners: none labs done 07/07/24: PSA 0.24, TT 484 Vendor Specialist Required: No Accompanied by: Family/Other Allergies No Known Allergies (No Known Allergies*) Allergy (Unverified 01/02/25 15:35) HPI Comments Details: - erectile dysfunction - [facility] Medical History (Updated 01/02/25 @ 16:01 by Js Garza MD) Anxiety and depression Seizure disorder Sleep myoclonus Surgical History History of surgery on lower extremity (~2005) Social History (Updated 02/26/24 @ 13:44 by WILL Gamble) Patient Tobacco Use Status: Current everyday Tobacco user Cigarette Packs Per Day: 1 Current occupational status: unemployed 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 Results AMB Urinalysis, Automated UA Leukoctes 0 [place]/uL Last Edit by AJ Barriga on 01/02/25 16:15 UA Nitrite Last Edit by AJ Barriga on 01/02/25 16:15 UA Urobilinogen 0.2 mg/dL Last Edit by AJ Barriga on 01/02/25 16:1 5 UA Protein 15 mg/dL Last Edit by AJ Barriag on 01/02/25 16:15 UA pH 6.0 Last Edit by AJ Barriga on 01/02/25 16:15 UA Blood 0 Sherman/uL Last Edit by AJ Barriga on 01/02/25 16:15 UA Specific Goodman 1.030 Last Edit by AJ Barriga on 01/02/25 16: 15 UA Ketone Last Edit by AJ Barriga on 01/02/25 16:15 UA Bilirubin 1 mg/dL Last Edit by AJ Barriga on 01/02/25 16:15 UA Glucose 0 mg/dL Last Edit by AJ Barriga on 01/02/25 16:15 Assessment & Plan Assessment & Plan (1) Erectile dysfunction due to arterial insufficiency: Code(s): N52.01 - Erectile dysfunction due to arterial insufficiency Category: Medical (2) Premature ejaculation: Code(s): F52.4 - Premature ejaculation Category: Medical Orders: Orders AMB Urinalysis Automated Today Z13.9 - Encounter for screening, unspecified Medications: New tadalafil 5 mg PO DAILY 90 tabs 0RF sexual activity 90 days N52.01 - Erectile dysfunction due to arterial insufficiency tadalafil 20 mg PO 1XD PRN 30 tabs 1RF sexual activity 30 days N52.01 - Erectile dysfunction due to arterial insufficiency Coding Diagnoses Erectile dysfunction due to arterial insufficiency N52.01 Premature ejaculation F52.4
== END 2025-01-02 16:18 | disposition home or self-care (01) ==
LOC: HO.HUSH 15:16
PROVIDERS: PCP Family Medicine; Visit Provider Urology
DX: Z13.9 Encounter for screening, unspecified (principal)

== ENCOUNTER → 2025-01-02 15:15 | Outpatient (BNVA) | payer MEDICAID, SELFPAY | PROVIDERS: PCP Family Medicine; Visit Provider Urology | DX: N52.01 Erectile dysfunction due to arterial insufficiency (principal) | CPT/HCPCS: 81003 ==

== ENCOUNTER 2025-03-06 09:00 | Outpatient (REF) | payer OTHER, SELFPAY ==
[2025-03-06 10:44] LABS: Hematocrit 39.3 % (42.0-52.0); Hemoglobin 12.1 g/dl (14.0-18.0); Mean Corpuscular HGB Conc 30.8 g/dl (31.0-36.0); Mean Corpuscular Hemoglobin 31.1 pg (27.0-33.0); Mean Corpuscular Volume 101.0 fL (80.0-98.0); NRBC Abs Auto 0.000 X10*3/uL (0.0-0.012); NRBC Pct Auto 0.0 /100WBC (0.0-0.2); Platelet Count 248 X10*3/uL (160-400); Red Blood Count 3.89 X10*6/uL (4.60-5.80); White Blood Count 3.8 X10*3/uL (4.8-10.8)
[2025-03-06 11:16] LABS: Alanine Aminotransferase 23 U/L (0-40); Albumin Level 4.5 g/dL (3.5-5.0); Alkaline Phosphatase 104 U/L (39-117); Anion Gap 12 (12-20); Aspartate Amino Transferase 26 U/L (5-37); Blood Urea Nitrogen 20 mg/dL (9-16); Calcium 8.9 mg/dL (8.4-10.2); Carbon Dioxide 27 mmol/L (22-29); Chloride 109 mmol/L (96-108); Cholesterol 147 mg/dL (<200); Estimated Glomerular Filt Rate > 60; HDL Cholesterol 53 mg/dL (>40); Potassium 3.8 mmol/L (3.3-5.1); Sodium 144 mmol/L (135-145); Total Protein 7.2 g/dL (6.5-8.0); Triglycerides 48 mg/dL (<150)
[2025-03-06 11:44] LABS: ~HepC Num1 13.86 S/CO (0.00-0.79); ~Hepatitis C Antibody Reactive (Nonreactive)
[2025-03-06 11:49] LABS: HIV Num 1 0.06 S/CO (0.00-0.99)
[2025-03-11 08:49] LABS: HCV Log PCR <1.18 NOT DETECTED Log IU/mL (NOT DETECTED); HepC Viral Load <15 NOT DETECTED IU/mL (NOT DETECTED)
== END 2025-03-06 09:01 | disposition home or self-care (01) ==
LOC: HO.LAB 09:00
PROVIDERS: PCP Internal Medicine; Visit Provider Internal Medicine
DX: Z76.89 Persons encountering health services in other specified circumstances (principal); M25.562 Pain in left knee; G89.29 Other chronic pain; F41.9 Anxiety disorder, unspecified; Z96.9 Presence of functional implant, unspecified; Z13.31 Encounter for screening for depression; Z13.39 Encounter for screening examination for other mental health and behavioral disorders; Z00.00 Encounter for general adult medical examination without abnormal findings
CPT/HCPCS: 36415; 80053; 80061; 84443; 85027; 86803; 87389; 87522; 99202

== ENCOUNTER 2025-03-06 09:00 | Outpatient (AMB) | payer OTHER, SELFPAY ==
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
[2025-03-06 09:03] VITALS: BP 120/72; PULSE 64; RESP 18; O2SAT 100; BMI 19.6
== END 2025-03-06 09:41 | disposition home or self-care (01) ==
LOC: HO.HMCH 09:01
PROVIDERS: PCP Internal Medicine; Visit Provider Internal Medicine
DX: Z00.00 Encounter for general adult medical examination without abnormal findings (principal); M25.562 Pain in left knee; G89.29 Other chronic pain; F41.9 Anxiety disorder, unspecified

== ENCOUNTER 2025-03-24 14:41 | Outpatient (REF) | payer OTHER, SELFPAY ==
[2025-03-24 16:00] LABS: Reticulocytes Absolute 0.048 X10*6/uL (0.026-0.095)
[2025-03-24 16:38] LABS: Iron 196 mcg/dL (45-160); Percent Iron Saturation 74 % (15-50); Total Iron Binding Capacity 266 mcg/dL (228-428); Unsaturated Iron Binding 70 ug/dL
[2025-03-24 16:52] LABS: Ferritin 90 ng/mL (20-250)
[2025-03-24 17:03] LABS: Folate 12.4 ng/mL (> or = 4.0); Vitamin B12 287 pg/mL (200-900)
--- OUTSIDE RECORDS SUMMARY | 2025-03-24 18:20 | XMS_ITS | Clinical Summary ---
Author Organization [employer] Address [address] [facility] [address] [place] [address] Care Team Providers Care Arch Pad Cementer Name Role Phone Jessika Griffith ANIKA Primary Care Provider [phone] Allergies No known active allergies Medications famotidine (Pepcid) 20 MG tabletIndications :Gastroesophageal reflux disease, unspecified whether esophagitis present TOME RADHA TABLETA DOS VECES AL YARIEL IN THE AM AND AT BEDTIME CUANDO SEA NECESARIO FOR REFLUX 180 tablet 1 01/03/20 23 Active Blood Pressure kitIndications:El evated blood pressure [...] 300 MG/1.5ML injectionIndicati ons:Opioid dependence, uncomplicated (CMS/HCC) (HCC) INJECT 1.5 ML SUBCUTANEOUSLY EVERY MONTH TO ABSORB CONTINUALLY 1.5 mL 1 05/16/19 25 Active varenicline (Chantix) 1 MG tabletIndications :Tobacco dependence TAKE 1 TABLET BY MOUTH TWICE DAILY FOR MAINTENANCE 60 tablet 1 10/21/19 25 Active hydrOXYzine pamoate (Vistaril) 25 MG capsule Take 1 capsule (25 mg) by mouth every 6 (six) hours if needed for anxiety for up to 15 days. 45 capsule 10/21/19 25 Active cholecalciferol (Vitamin D-3) 25 MCG (1000 UT) capsule Take 1 capsule (25 mcg) by mouth Once per day. 30 capsule 11 10/21/19 25 026 Active docusate sodium (Colace) 100 MG capsuleIndication s:Opioid use disorder Take 1 capsule (100 mg) by mouth if needed in the morning and at bedtime for constipation. 60 capsule 5 10/21/19 25 026 Active nicotine polacrilex (Commit) 2 MG lozenge Dissolve 1 lozenge (2 mg) in the mouth if needed for smoking cessation. 100 lozenge 10/21/19 25 Active Active Problems Problem Noted Date Diagnosed Date Seborrheic dermatitis 09/08/2024 Assessment & Plan (09/08/2024 6:33 PM EDT): Scalp is well managed, but trial topical lotions for nasal folds Return to clinic for failure to improve Folliculitis 09/08/2024 Assessment & Plan (09/08/2024 6:32 PM EDT): Diffuse peripheral eruptions, Trial keflex, Encouraged topical exfoliation, and lotion after shower Weight loss 09/08/2024 Assessment & Plan (09/08/2024 6:31 PM EDT): Pt with potentially idiopathic wt loss, chest x-ray ordered, referral to GI for early satiety Infectious labs as ordered below Return to clinic in 8 weeks Encouraged small frequent snacks/meals regardless of appetite Opiate use 06/03/2024 Attacks of weakness 06/03/2024 [...] bps Hair loss 01/08/2024 Assessment & Plan (09/08/2024 6:32 PM EDT): Quite bothersome to pt, no anemia, tsh wnl Referral to derm Assessment & Plan (01/08/2024 5:40 PM EDT): [...] denies any dysuria currently, interview conducted with spinning machine tender. Cocaine use 03/06/2023 Tobacco dependence 03/06/2023 Overview (11/22/2023): -Cigg/day: 20 -Age started: 9 y/o -Total years smokin years -Pack year history: > 20 pack year hx Encouraged smoking cessation resources such as pharmacomtherapy, [facility] smoking cessation group, and [facility] pharmacy smoking cessation clinic -START varenicline Assessment & Plan (10/04/2024 9:44 AM EDT): -encouraged to start chantix prescription provided by PCP -informed of tobacco cessation program at [facility] and he is encouraged to discuss with his [facility] provider -declines nicotine patches at this time Assessment & Plan (01/08/2024 5:39 PM EDT): [...] 12:31 PM EDT): Reports prior tx in [facility], requested [place] to get medical release form. Denies other exposures after treatment. Substance use disorder 09/13/2022 Erectile dysfunction 09/13/2022 Assessment & Plan (10/04/2024 9:43 AM EDT): -potential causes: drug induced w/ sublocade injections vs. Metabolic dysfunction vs. Low testosterone vs. Vascular dysfunction -lipid and A1c completed 5 months ago WNL decreasing probability to metabolic relation -was previously referred to urology in [address]. [address] referral again -discussed impact of smoking on sexual health -labs to evaluate testosterone Assessment & Plan (09/13/2022 12:29 PM EDT): In the setting of chronic opiates, will need to elucidate and r/o etiologies. Denies morning erections. Has had this issue for years. Pending records. Labs: lipid, a1c, tesosterone Referral: urology History of incarceration 09/13/2022 Routine adult health maintenance 06/14/2022 Opioid dependence, uncomplicated (CMS/HCC) 03/20 Overview (03/20/2022): Suboxone through [facility] [...] planning to follow up with specialist - [facility] - regarding next steps/available options. Follow up with primary care PRN. Pt in agreement with plan. Pain of left lower extremity 09/16/2021 Assessment & Plan (09/13/2022 12:30 PM EDT): [place] 2007 in [place], per pt had jay placed in his left femur. [facility] [place], no records. Will start with imaging and send to physiatry. Uses ibuprofen/APAP prn. Wants to avoid controlled substances given prior hx of IVDU and currently on suboxone. Encounters Date Type Department Care Team Description 01/12/2025 Telephone [facility] [address] [place] [address] Jessika Griffith NP CHARTPREP from Last 3 Months Immunizations Immunization Administration Dates Next Due Influenza, seasonal, injectable, preservative fr ee 03/04/2024,03/09/2022 Pfizer Covid-19 Vaccine 12+ 03/04/2024 Pneumococcal Polysaccharide PPSV23 03/13/2016 Tdap 12/20/2016 Family History Medical History Relation Name Comments Prostate cancer Maternal Grandfather Relation Name Status Comments Maternal Grandfather Social History Tobacco Use Types Packs/Day Years Used Date Smoking Tobacco: Every Day Cigarettes 1.5 30.5 Started: 09/23/1994 Smokeless Tobacco: Never Tobacco Cessation:Ready to Q uit: Not Asked; Counseling Given: Not Answered Alcohol Use Standard Drinks/Week Comments Never 0 (1 standard drink = 0.6 oz pur e alcohol) Depression Answer Date Recorded Patient Health Questionnaire-9 Score 11 09/08/2024 Patient Health Questionnaire-9 Score 11 09/08/2024 Last PHQ-9: Questionnaire Data Not on file 0 09/08/2024 Housing Stability Answer Date Recorded What is [...] Answer Date Recorded Patient Health Questionnaire-2 Score 3 09/08/2024 Internet Access Answer Date Recorded Internet Access [...] Sign Reading Time Taken Comments Blood Pressure 112/74 09/08/2024 1:48 PM EDT Pulse 94 09/08/2024 1:48 PM EDT Temperature 36.4 C (97.6 F) 09/08/2024 1:48 PM EDT Respiratory Rate 20 09/08/2024 1:48 PM EDT Oxygen Saturation 95% 09/08/2024 1:48 PM EDT Inhaled Oxygen Concentration - - Weight 59.2 kg (130 lb 9.6 oz) 09/08/2024 1:48 P M EDT Height 165.1 cm (5' 5 ) 09/08/2024 1:48 PM EDT Body Mass Index 21.73 09/08/2024 1:48 PM EDT Plan of Treatment Upcoming Encounters Date Type Department Care Team (Late st Contact Info) Description 04/03/2025 10:45 AM EST Office Visit [facility] [address] [place] [address] Akila Loomis MD [address] [place] [address] Health Maintenance Due Date Last Done Comments Dental Prophylaxis 1983 Disability Screening 1983 Alcohol/Substance Use Screening 1995 Family Planning (PISQ) 10/19/1998 HPV Vaccines (1 - Male 3-dose series) 10/19/1998 Hepatitis B Vaccines (1 of 3 - 19+ 3-dose series) 10/19/2002 Pneumococcal Vaccine: Pediatrics (0 to 5 Years) and At-Risk Patients (6 to 49) Years (2 of 2 - PCV) 03/13/2017 03/13/2016 COVID-19 Vaccine ( season) 2024 03/04/2024, 03/04/2021, 08/06/2020, Additional history exists Influenza Vaccine (#1) 2024 03/04/2024, 2021 Dental Oral Exam 11/27/2024 05/26/2024 Depression Monitoring 03/10/2025 09/08/2024, 025 Dental X-Ray: Bitewings 05/27/2025 05/26/2024 SDOH Screening 09/08/2025 09/08/2024 Tobacco Screening 09/08/2025 09/08/2024 DTaP/Tdap/Td Vaccines (2 - Td or Tdap) 12/20/2026 12/20/2016 Dental X-Ray: Full Mouth 05/28/2027 05/26/2024, 04/26 Lipid Panel 01/27/2029 01/28/2024, 09/14/2022 Zoster Vaccines (1 of 2) 10/19/2033 RSV Patients and Patients Aged 60 years or older (1 - 1-dose 75+ series) 10/19/2058 HIV Screening Completed 09/08/2024, 04/0 05/2023, 09/14/2022 Hepatitis C Screening Discontinued 09/08/2024 , 09/08/2024, 01/28/2024, Additional history exists HIB Vaccines Aged Out No longer eligi ble based on patient's age to complete this topic Hepatitis A Vaccines Aged Out No long er eligible based on patient's age to complete this topic IPV Vaccines Aged Out No longer eligi ble based on patient's age to complete this topic Meningococcal B Vaccine Aged Out No l onger eligible based on patient's age to complete [...] all mood-altering substances General No Josué Elizondo, education program associate Procedure Name Priority Date/Time Associated Diagnosis Comments AMB REFERRAL TO UROLOGY Routine 01/02/2025 Erectile dysfunction, unspecified erectile dysfunction type HEPATITIS C AB W/REFL TO HCV RNA, QN, PCR Routine 09/08/2024 2:38 PM EDT Weight loss HIV 1/2 ANTIGEN/ANTIBODY, FOURTH GENERATION W/RFL Routine 09/08/2024 2:38 PM EDT Weight loss INTRAORAL - COMPLETE SERIES OF RADIOGRAPHIC IMAGES Routine 05/26/2024 2:30 PM EST PERIODIC ORAL EVALUATION - ESTABLISHED PATIENT Routine 05/26/2024 2:30 PM EST LIPID PANEL, STANDARD Routine 01/28/2024 9:25 AM EST Leg swelling from Last 3 Months or Most Recently Relevant to Health Maintenance Results * Referral to Urology (01/02/2025) Lorna Thurston NP OUTPATIENT REFERRAL ORDERABLES Final Result * (ABNORMAL) Hepatitis C Antibody with Reflex to HCV, RNA, Quantitative, Real- Time PCR (09/08/2024 2:38 PM EDT) Hepatitis C Antibody Reactive( A) Nonreactive [facility] Comment:Presumptive evidence of antibodies to HCV. Blood Venous blood specimen / Unknown 09/08/2024 2:38 PM EDT 09/08/2024 4:02 PM EDT us Jessika Griffith NP LAB BLOOD ORDERABLES Final Resul t Performing Organization Address [facility] Co de Phone Number [facility] [address] [place] [address] [phone] * HIV-1/2 Antigen and Antibodies, Fourth Generation, with Reflexes (09/08/2024 2:38 PM EDT) HIV AB/AG Nonreactive Nonreactive [facility] Comment:HIV-1 p24 Ag and/or HIV-1/HIV-2 Ab not detected.A test result that is nonreactive does not exclude thepossibility of exposure to or infection with HIV-1 and/orHIV-2. Nonreactive results in this assay for individualswith prior exposure to HIV-1 and/or HIV-2 may be due toantigen and antibody levels that are below the limit ofdetection of this assay.The [employer] Ax[employer] HIV Ag/Ab Combo assay result andsupplemental assay results should be interpreted inconjunction with the patient's clinical presentation,history and other laboratory results. If the results areinconsistent with clinical evidence, additional testing issuggested to confirm the result. Blood Venous blood specimen / Unknown 09/08/2024 2:38 PM EDT 09/08/2024 4:02 PM EDT us Jessika Griffith NP LAB BLOOD ORDERABLES Final Resul t Performing Organization Address [facility] Co de Phone Number [facility] [address] [place] [address] [phone] * (ABNORMAL) Lipid Panel, Standard (01/28/2024 9:25 AM EST) Triglycerides 88 <150 mg/dL [facility] Comment:Desirable Triglyceri de: less than 150 mg/dLBorderline High Triglyceride 150-199 mg/dLHigh Triglyceride: 200-499 mg/dLVery High Triglyceride: greater than or equal to 5OO mg/dL Cholesterol 118 <200 mg/dL [facility] Comment:Desirable Cholestero l: less than 200 mg/dLBorderline High Cholesterol: 200-239 mg/dLHigh Cholesterol: greater than 239 mg/dL LDL Cholesterol Calculated 63 <100 mg/dL [facility] Comment:Desirable LDL: less than 100 mg/dLNear Optimal/Above Optimal LDL: 110- 129 mg/dLBorderline High LDL: 130-159 mg/dLHigh LDL: 160-189 mg/dLVery High LDL: greater than or equal to 190 mg/dL HDL Cholesterol 38(L) >40 mg/dL [facility] Comment:Desirable HDL: great er than 40 mg/dL Note: This HDL assay may give artificially low results in patients with liver disease. Blood Venous blood specimen / Unknown 01/28/2024 9:25 AM EST 01/28/2024 11:10 AM EST Olamide Pereyra MD LAB BLOOD ORDERAB LES Final Result [facility] [address] [place] [phone] from Last 3 Months or Most Recently Relevant to Health Maintenance Insurance [facility] [address] [place] [address] DENTAL-[employer] [facility] MEDICAID STAND ADULT Care Teams Arch Pad Cementer Relationship Specialty Start Date End Date Jessika Griffith NP [address] [place] [phone] PCP - General Family Medicine 04/24/23
--- OUTSIDE RECORDS SUMMARY | 2025-03-24 18:20 | XMS_ITS | Encounter Summary ---
Author Organization [employer] Address [address] [address] [place] [address] Care Team Providers Care Teletype Or Varitype Keyboard Operator Name Role Phone LauraJessika fontanez ANIKA Primary Care Provider [phone] Encounter Details Date Type Department Care Team (Late st Contact Info) Description 10/16/2023 Orders Only [facility] [address] [place], [place] [phone] Lopez Dalton MD [address] [place], [place] [phone] Opioid use disorder Social History Tobacco Use Types Packs/Day Years Used Date Smoking Tobacco: Every Day Cigarettes 1.5 30.5 Started: 09/23/1994 Smokeless Tobacco: Never Alcohol Use [...] with others, in a hotel, in a nursing home, living outside on the street, on a [...] Description 04/03/2025 10:45 AM EST Office Visit [facility] [address] [place] [phone] Akila Loomis MD [address] [place] [address] documented as of this encounter Visit Diagnoses Diagnosis Opioid use disorder documented in this encounter Additional Health Concerns Assessment Noted Time PHQ-9 Depression Total Score: 0 07/04/19 10:45 AM EDT documented as of this encounter Care Teams Teletype Or Varitype Keyboard Operator Relationship Specialty Start Date End Date Jessika Griffith NP [address] [place] [phone] PCP - General Family Medicine 04/24/23 documented as of this encounter
--- OUTSIDE RECORDS SUMMARY | 2025-03-24 18:20 | XMS_ITS | Encounter Summary ---
Author Organization [employer] Address [address] [facility] [address] [place] [address] Care Team Providers Care Salvage Engineer Name Role Phone Jessika Griffith ANIKA Primary Care Provider [phone] Reason for Visit * Reason Onset Date Comments Med Refill 2024 Encounter Details Date Type Department Care Team ([facility] st Contact Info) Description 2024 Refill [facility] [address] [place], [place] [phone] Lopez Dalton MD [address] [place], [place] [phone] Opioid use disorder Social History Tobacco Use [...] Description 04/03/2025 10:45 AM EST Office Visit [facility] [address] [place] [phone] Akila Loomis MD [address] [place] [phone] documented as of this encounter Goals Goal Patient Goal Type Associated Problems Recent Progress Patient-Stated? Author Improve quality of life by maintaining ongoing abstinence from all mood-altering substances General Josué Mendoza, RN documented as of this encounter Visit Diagnoses Diagnosis Opioid use disorder documented in this encounter Additional Health Concerns Assessment Noted Time PHQ-9 Depression Total Score: 11 025 2:34 PM EDT documented as of this encounter Care Teams Salvage Engineer Relationship Specialty Start Date End Date Jessika Griffith NP [address] [place] [phone] PCP - General Family Medicine 04/24/23 documented as of this encounter
--- OUTSIDE RECORDS SUMMARY | 2025-03-24 18:20 | XMS_ITS | Encounter Summary ---
Author Organization [employer] Address [address] [facility] [address] [facility] [address] [place] [address] Care Team Providers Care Tearoom Host/Hostess Name Role Phone LauraJessika fontanez ANIKA Primary Care Provider Reason for Visit * Reason Onset Date Comments Med Refill 2024 Encounter Details Date Type Department Care Team (Late st Contact Info) Description 2024 Refill [facility] [address] [place] [address] Margot Tellez FNP [address] [place] [address] Gastroesophageal reflux disease, unspecified whether esophagitis present Social History Tobacco Use Types Packs/Day Years [...] Description 04/03/2025 10:45 AM EST Office Visit [facility] [address] [place] [address] Akila Loomis MD [address] [place] [address] documented as of this encounter Goals Goal Patient Goal Type Associated Problems Recent Progress Patient-Stated? Author Improve quality of life by maintaining ongoing abstinence from all mood-altering substances General Josué Mendoza, RN documented as of this encounter Visit Diagnoses Diagnosis Gastroesophageal reflux disease, unspecified whether esophagitis present documented in this encounter Additional Health Concerns Assessment Noted Time PHQ-9 Depression Total Score: 11 025 2:34 PM EDT documented as of this encounter Care Teams Tearoom Host/Hostess Relationship Specialty Start Date End Date Jessika Griffith NP [address] [place] [address] PCP - General Family Medicine 04/24/23 documented as of this encounter
== END 2025-03-24 14:42 | disposition home or self-care (01) ==
LOC: HO.LAB 14:41
PROVIDERS: PCP Internal Medicine; Visit Provider Internal Medicine
DX: D64.9 Anemia, unspecified (principal)
CPT/HCPCS: 36415; 82607; 82728; 82746; 83090; 83540; 83921; 85045